=== PATIENT | male | born 1965 | race Caucasian/White ===

== ENCOUNTER 2016-10-26 14:46 | Inpatient (IN) | payer MEDICARE, OTHER ==
[2016-10-26] MEDS ORDERED: ACETAMINOPHEN IV (For NPO) 1,000 MG in EMPTY BAG 1 BAG IVPB STA (15:39)
[2016-10-26] MEDS ORDERED: IBUPROFEN IV 600 MG in SODIUM CHLORIDE 0.9% 250 ML IV STA (15:39)
[2016-10-26] MEDS ORDERED: ONDANSETRON 4 MG/2 ML VIAL IVP STA (15:40)
--- NOTE | 2016-10-26 15:43 | ED ---
General Adult HPI - General Chief complaint: Fever Stated complaint: SOB Time Seen by Provider: 10/26/16 15:00 Source: patient, RN notes reviewed Mode of arrival: wheelchair Limitations: no limitations - History of Present Illness Initial comments: This is a 51-year-old male who presents emergency department stating he has past medical history significant for leukemia. Patient comes in today because he been short of breath and coughing for the last 3 days. Patient states today' s got much worse. Patient thinks he has a fever as well. Patient states he has been coughing up sputum but as of today he's been unable to cough up anything more. Patient denies any chest pain or palpitations. Patient denies headache patient denies numbness weakness. Patient denies lightheadedness dizziness or near syncopal episode. Patient denies abdominal pain patient denies nausea vomiting or diarrhea. Patient states he cannot get the flu shot per his oncologist. - Related Data Home Medications Medication Instructions Recorded Confirmed ALPRAZolam [Xanax] 1 mg PO Q6H PRN 12/16/14 10/26/16 Ondansetron [Zofran ODT] 8 mg PO DIRECTED PRN 12/16/14 10/26/16 fentaNYL 25MCG/HR PATCH [Duragesic 1 applic TOPICAL Q72H 12/16/14 10/26/16 25MCG/HR] oxyCODONE-APAP 10-325MG [Percocet 1 tab PO Q3-4H PRN 12/18/14 10/26/16 10-325 mg] D-Methorphan/Acetamin/Doxylamn 30 ml PO Q6H PRN 10/26/16 10/26/16 [Vicks Nyquil Cold & Flu Liquid] amLODIPine [Norvasc] 10 mg PO DAILY 10/26/16 10/26/16 Allergies Allergy/AdvReac Type Severity Reaction Status Date / Time metoclopramide HCl Allergy Unknown Verified 10/26/16 16:34 [From Reglan] meperidine HCl [From Demerol] AdvReac Unknown Verified 10/26/16 16:34 Review of Systems ROS Statement: Those systems with pertinent positive or pertinent negative responses have been documented in the HPI. ROS Other: All systems not noted in ROS Statement are negative. Past Medical History Past Medical History: Cancer Additional Past Medical History / Comment(s): LEUKEMIA, HIATAL HERNIA, PT STATES CURRENTLY OFF CHEMO MEDS UNTIL AFTER THIS SURGERY History of Any Multi-Drug Resistant Organisms: None Reported Past Surgical History: Appendectomy, Bowel Resection, Hernia Repair Additional Past Surgical History / Comment(s): STATES MULTIPLE STOMACH SX, MULT ADHESIONS, HAS SURGICAL STEEL MESH IN INCISIONAL HERNIA Additional Past Anesthesia/Blood Transfusion Reaction / Comment(s): STATES OCCASIONALLY WAKES UP VIOLENT, AND NEEDS TO HAVE "WRISTS CUFFED" Past Psychological History: Depression Smoking Status: Current every day smoker Past Alcohol Use History: None Reported Past Drug Use History: None Reported General Exam - General Exam Comments Initial Comments: GENERAL: Patient is well-developed and well-nourished. Patient is nontoxic and well- hydrated and is in moderate distress. ENT: Neck is soft and supple. No significant lymphadenopathy is noted. Oropharynx is clear. Moist mucous membranes. Neck has full range of motion without eliciting any pain. EYES: The sclera were anicteric and conjunctiva were pink and moist. Extraocular movements were intact and pupils were equal round and reactive to light. Eyelids were unremarkable. PULMONARY: Unlabored respirations. Good breath sounds bilaterally. No audible rales rhonchi or wheezing was noted. CARDIOVASCULAR: There is a regular rate and rhythm without any murmurs gallops or rubs. ABDOMEN: Soft and nontender with normal bowel sounds. SKIN: Skin is clear with no lesions or rashes and otherwise unremarkable. NEUROLOGIC: Patient is alert and oriented x3. Cranial nerves II through XII are grossly intact. Motor and sensory are also intact. Normal speech, volume and content. Symmetrical smile. MUSCULOSKELETAL: Normal extremities with adequate strength and full range of motion. LYMPHATICS: No significant lymphadenopathy is noted PSYCHIATRIC: Normal psychiatric evaluation. Limitations: no limitations Course Vital Signs 10/26/16 10/26/16 10/26/16 15:00 16:56 17:10 Temperature 103.4 F H 103.3 F H 102.3 F H Pulse Rate 124 H 129 H 122 H Respiratory 20 24 20 Rate Blood Pressure 134/84 136/70 135/70 O2 Sat by Pulse 93 L 93 L 92 L Oximetry Medical Decision Making - Medical Decision Making EKG showed sinus tachycardia at 128 bpm UT interval is 142 QRS is 96 QT interval is 294 QTC is 429. Patient's EKG shows no ST segment elevation or depression or T-wave abnormalities are noted Chest x-ray shows no acute abdomen. Patient has influenza positive. Spoke with Dr. Rod he said the patient been discharged from his practice. Dr. Rod did not think the 85,000 white count was alarming and was no reason to keep him in the hospital but if the patient looked enough distress he was fine with keeping the patient hospital but he did not want to consult. - Lab Data Result diagrams: 10/26/16 15:51 10/26/16 15:51 Lab Results 10/26/16 10/26/16 10/26/16 Range/Units 15:51 15:51 15:51 WBC 85.4 H* (3.8-10.6) k/uL RBC 4.34 (4.30-5.90) m/uL Hgb 13.5 (13.0-17.5) gm/dL Hct 40.3 (39.0-53.0) % MCV 92.8 (80.0-100.0) fL MCH 31.0 (25.0-35.0) pg MCHC 33.4 (31.0-37.0) g/dL RDW 15.7 H (11.5-15.5) % Plt Count 276 (150-450) k/uL Neutrophils % (Manual) 65.0 % Band Neutrophils % 8.0 % Lymphocytes % (Manual) 4.0 % Monocytes % (Manual) 5.0 % Eosinophils % (Manual) 1.5 % Basophils % (Manual) 5.0 % Metamyelocytes % 6.5 % Myelocytes % 5.0 % Neutrophils # (Manual) 62.3 H (1.3-7.7) k/uL Lymphocytes # (Manual) 3.4 (1.0-4.8) k/uL Monocytes # (Manual) 4.3 H (0-1.0) k/uL Eosinophils # (Manual) 1.3 H (0-0.7) k/uL Basophils # (Manual) 4.3 H (0-0.2) k/uL Nucleated RBCs 0 (0-0) /100 WBC Manual Slide Review Performed Large Platelets Present PT (9.0-12.0) sec INR (<1.1) APTT (22.0-30.0) sec Sodium 140 (137-145) mmol/L Potassium 4.3 (3.5-5.1) mmol/L Chloride 99 (98-107) mmol/L Carbon Dioxide 26 (22-30) mmol/L Anion Gap 15 mmol/L BUN 10 (9-20) mg/dL Creatinine 1.00 (0.66-1.25) mg/dL Est GFR (MDRD) Af Amer >60 (>60 ml/min/1.73 sqM) Est GFR (MDRD) Non-Af >60 (>60 ml/min/1.73 sqM) Glucose 139 H (74-99) mg/dL Plasma Lactic Acid Patrice (0.7-2.0) mmol/L Calcium 9.2 (8.4-10.2) mg/dL Total Bilirubin 0.6 (0.2-1.3) mg/dL AST 38 (17-59) U/L ALT 43 (21-72) U/L Alkaline Phosphatase 87 (38-126) U/L Total Creatine Kinase 240 H (55-170) U/L CK-MB (CK-2) 0.7 (0.0-2.4) ng/mL CK-MB (CK-2) Rel Index 0.3 Troponin I <0.012 (0.000-0.034) ng/mL Total Protein 8.9 H (6.3-8.2) g/dL Albumin 4.6 (3.5-5.0) g/dL Cortisol 23 ug/dL Influenza Type A RNA (Not Detectd) Influenza Type B (PCR) (Not Detectd) 10/26/16 10/26/16 10/26/16 Range/Units 15:51 15:51 16:10 WBC (3.8-10.6) k/uL RBC (4.30-5.90) m/uL Hgb (13.0-17.5) gm/dL Hct (39.0-53.0) % MCV (80.0-100.0) fL MCH (25.0-35.0) pg MCHC (31.0-37.0) g/dL RDW (11.5-15.5) % Plt Count (150-450) k/uL Neutrophils % (Manual) % Band Neutrophils % % Lymphocytes % (Manual) % Monocytes % (Manual) % Eosinophils % (Manual) % Basophils % (Manual) % Metamyelocytes % % Myelocytes % % Neutrophils # (Manual) (1.3-7.7) k/uL Lymphocytes # (Manual) (1.0-4.8) k/uL Monocytes # (Manual) (0-1.0) k/uL Eosinophils # (Manual) (0-0.7) k/uL Basophils # (Manual) (0-0.2) k/uL Nucleated RBCs (0-0) /100 WBC Manual Slide Review Large Platelets PT 11.4 (9.0-12.0) sec INR 1.1 (<1.1) APTT 31.0 H (22.0-30.0) sec Sodium (137-145) mmol/L Potassium (3.5-5.1) mmol/L Chloride (98-107) mmol/L Carbon Dioxide (22-30) mmol/L Anion Gap mmol/L BUN (9-20) mg/dL Creatinine (0.66-1.25) mg/dL Est GFR (MDRD) Af Amer (>60 ml/min/1.73 sqM) Est GFR (MDRD) Non-Af (>60 ml/min/1.73 sqM) Glucose (74-99) mg/dL Plasma Lactic Acid Patrice 1.5 (0.7-2.0) mmol/L Calcium (8.4-10.2) mg/dL Total Bilirubin (0.2-1.3) mg/dL AST (17-59) U/L ALT (21-72) U/L Alkaline Phosphatase (38-126) U/L Total Creatine Kinase (55-170) U/L CK-MB (CK-2) (0.0-2.4) ng/mL CK-MB (CK-2) Rel Index Troponin I (0.000-0.034) ng/mL Total Protein (6.3-8.2) g/dL Albumin (3.5-5.0) g/dL Cortisol ug/dL Influenza Type A RNA Detected A (Not Detectd) Influenza Type B (PCR) Not Detected (Not Detectd) Disposition Clinical Impression: Influenza, Dyspnea, Leukocytosis, History of chronic myeloid leukemia Disposition: [facility] Referrals: Diego Mao MD [Primary Care Provider] - 1-2 days Time of Disposition: 17:10
[2016-10-26] MEDS: SODIUM CHLORIDE 0.9% 500 ML IV SCH ×2 (15:55→16:03)
[2016-10-26 16:07] LABS: CH 30.6; CHCM 33.3; HCT 40.3 % (39.0-53.0); HGB 13.5 gm/dL (13.0-17.5); Immature Gran Flag Marked; MCHC 33.4 g/dL (31.0-37.0); MCV 92.8 fL (80.0-100.0); Mean Platelet Volume 8.2; RBC 4.34 m/uL (4.30-5.90); RDW 15.7 % (11.5-15.5); WBC (Perox) 58.94
[2016-10-26 16:16] LABS: ALT 43 U/L (21-72); AST 38 U/L (17-59); Alkaline Phosphatase 87 U/L (38-126); Anion Gap 15 mmol/L; Blood Urea Nitrogen 10 mg/dL (9-20); Calcium 9.2 mg/dL (8.4-10.2); Carbon Dioxide 26 mmol/L (22-30); Chloride 99 mmol/L (98-107); Glucose 139 mg/dL (74-99); INR 1.1 (<1.1); Non-African American GFR(MDRD) >60 (>60 ml/min/1.73 sqM); Potassium 4.3 mmol/L (3.5-5.1); Prothrombin Time 11.4 sec (9.0-12.0); Sodium 140 mmol/L (137-145); Total Bilirubin 0.6 mg/dL (0.2-1.3); Total Protein 8.9 g/dL (6.3-8.2)
[2016-10-26 16:21] LABS: Creatine Kinase 240 U/L (55-170)
[2016-10-26 16:26] LABS: WBC 85.4 k/uL (3.8-10.6)
--- NOTE | 2016-10-26 16:31 | XR ---
EXAMINATION TYPE: XR chest 2V DATE OF EXAM: 10/26/2016 4:27 PM COMPARISON: 12/19/2014 INDICATION: Fever TECHNIQUE: Single frontal view of the chest is obtained. FINDINGS: The heart size is normal. The pulmonary vasculature is normal. The lungs are clear. IMPRESSION: 1. No acute pulmonary process.
[2016-10-26 16:33] LABS: Creatine Kinase MB 0.7 ng/mL (0.0-2.4); Troponin I <0.012 ng/mL (0.000-0.034)
[2016-10-26 16:53] LABS: Add Differential Manual Differential
[2016-10-26 16:58] LABS: Metamyelocytes % 6.5 %; Nucleated Red Blood Cells 0 /100 WBC (0-0); Total Cells Counted 200
[2016-10-26 16:59] LABS: Large Platelets Present; Manual Review Performed
[2016-10-26] MEDS ORDERED: SODIUM CHLORIDE 0.9% 1,000 ML IV ONE ×2 (17:10→17:11)
[2016-10-26] MEDS ORDERED: OSELTAMIVIR 75 MG CAP PO STA (17:11)
[2016-10-26] MEDS ORDERED: ACETAMINOPHEN TAB 325 MG TAB PO PRN (17:13)
[2016-10-26] MEDS ORDERED: IBUPROFEN 600 MG TAB PO PRN (17:14)
[2016-10-26] MEDS: MAG HYDROX/AL HYDROX/SIMETH 30 ML CUP PO PRN (20:40)
[2016-10-26] MEDS: oxyCODONE-APAP 10-325MG 1 EACH TAB PO PRN ×2 (20:41→23:07)
[2016-10-26] MEDS ORDERED: SODIUM CHLORIDE 0.9% 500 ML IV ONE (20:45)
[2016-10-26] MEDS ORDERED: METOPROLOL TARTRATE 50 MG TAB PO STA (20:46)
[2016-10-26] MEDS ORDERED: hydrALAZINE HCL 20 MG/ML 1 ML VIAL IVP PRN (20:47)
[2016-10-26] MEDS: SODIUM CHLORIDE 0.9% 1,000 ML IV SCH (21:06)
[2016-10-26 21:20] LABS: Creatine Kinase 339 U/L (55-170)
[2016-10-26 21:32] LABS: Creatine Kinase MB 0.9 ng/mL (0.0-2.4); Troponin I <0.012 ng/mL (0.000-0.034)
[2016-10-26] MEDS: OSELTAMIVIR 75 MG CAP PO SCH (22:36)
[2016-10-27 02:12] LABS: Appearance,Urine Clear (Clear); Bilirubin,Urine Negative (Negative); Glucose,Urine (UA) Negative (Negative); Ketones,Urine Negative (Negative); Leukocyte Esterase,Urine Negative (Negative); Nitrite,Urine Negative (Negative); PH, Urine 5.5 (5.0-8.0); Protein,Urine Trace (Negative); Specific Gravity,Urine 1.027 (1.001-1.035); UA Billing (MACRO vs. MICRO) CHEM
[2016-10-27] MEDS: oxyCODONE-APAP 10-325MG 1 EACH TAB PO PRN ×6 (02:29→20:37)
[2016-10-27 03:58] LABS: Creatine Kinase 481 U/L (55-170)
[2016-10-27 04:11] LABS: Creatine Kinase MB 1.9 ng/mL (0.0-2.4); Troponin I <0.012 ng/mL (0.000-0.034)
[2016-10-27] MEDS: ALPRAZolam 0.5 MG TAB PO PRN ×2 (04:58→23:26)
[2016-10-27] MEDS: ONDANSETRON 4 MG/2 ML VIAL IVP PRN (08:17)
[2016-10-27] MEDS ORDERED: ACETAMINOPHEN PO PRN (10:43)
[2016-10-27] MEDS ORDERED: [UNRECOGNIZED DRUG - OTHER] PO PRN (10:43)
[2016-10-27] MEDS ORDERED: DOXYLAMINE PO PRN (10:43)
[2016-10-27] MEDS ORDERED: DEXTROMETHORPHAN PO PRN (10:43)
[2016-10-27] MEDS ORDERED: TEMAZEPAM 15 MG CAP PO PRN (10:45)
[2016-10-27] MEDS: OSELTAMIVIR 75 MG CAP PO SCH ×2 (11:52→20:53)
[2016-10-27] MEDS: METOPROLOL TARTRATE 50 MG TAB PO SCH ×2 (11:52→20:53)
[2016-10-27] MEDS: SODIUM CHLORIDE 0.9% 1,000 ML IV SCH ×4 (11:54→20:01)
[2016-10-27] MEDS: LEVOFLOXACIN 500MG-D5W PMX 500 MG in DEXTROSE/WATER 1 100ML.BAG IVPB SCH (11:59)
[2016-10-27 14:17] VITALS: BMI 33.6
--- NOTE | 2016-10-27 14:43 | P.CNPUL ---
History of Present Illness Consult date: 10/27/16 Reason for consult: dyspnea, cough, COPD, other Chief complaint: Fever or shortness of breath influenza History of present illness: This is a 51-year-old gentleman who apparently sees Dr. Diego Mao up in [place]. The patient apparently was sent to the emergency room here because of fever and shortness of breath the patient is feeling a bit better today. He does have a history of leukemia. His oncologist is Dr. Luna. The patient states that there for last couple of days or so he's been coughing. Has had fever. Shortness of breath. Not able to cough up much or any phlegm. No chest pain or palpitations. No headache. No nausea vomiting or diarrhea. Review of Systems A 12 point review of system is positive for fever as well as cough and some shortness of breath. The rest of the 12 point review of system is unremarkable. He apparently was admitted for influenza. His chest x-ray though is normal. 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") HIATAL HERNIA(has sx), chronic pain syndrome, History of Any Multi-Drug Resistant Organisms: None Reported Past Surgical History: Adenoidectomy, Appendectomy, Bowel Resection, Hernia Repair, Tonsillectomy Additional Past Surgical History / Comment(s): STATES MULTIPLE STOMACH SX, MULT ADHESIONS, HAS SURGICAL STEEL MESH IN INCISIONAL HERNIA, HIATAL HERNIA SX AND LYSIS OF ADHESIONS Additional Past Anesthesia/Blood Transfusion Reaction / Comment(s): STATES OCCASIONALLY WAKES UP VIOLENT, AND NEEDS TO HAVE "WRISTS CUFFED" Past Psychological History: Depression Additional Psychological History / Comment(s): PT STATED HAS DEPRESSION BUT NO THOUGHT OF HARMING SELF. Smoking Status: Former smoker Past Alcohol Use History: None Reported Additional Past Alcohol Use History / Comment(s): STARTED SMOKING AT AGE 19 JUST STOPPED SMOKING FEW DAYS BEFORE THIS ADMIT. WAS SMOKING 1-1.5 PPD. Past Drug Use History: None Reported - Past Family History Father Additional Family Medical History / Comment(s): HEART PROBLEMS Mother Family Medical History: No Reported History Additional Family Medical History / Comment(s): "HEALTHY". ' Medications and Allergies Home Medications Medication Instructions Recorded Confirmed Type ALPRAZolam [Xanax] 1 mg PO Q6H PRN 12/16/14 10/26/16 History Ondansetron [Zofran ODT] 8 mg PO DIRECTED PRN 12/16/14 10/26/16 History fentaNYL 25MCG/HR PATCH [Duragesic 1 applic TOPICAL Q72H 12/16/14 10/26/16 History 25MCG/HR] oxyCODONE-APAP 10-325MG [Percocet 1 tab PO Q3-4H PRN 12/18/14 10/26/16 History 10-325 mg] D-Methorphan/Acetamin/Doxylamn 30 ml PO Q6H PRN 10/26/16 10/26/16 History [Vicks Nyquil Cold & Flu Liquid] amLODIPine [Norvasc] 10 mg PO DAILY 10/26/16 10/26/16 History Allergies Allergy/AdvReac Type Severity Reaction Status Date / Time metoclopramide HCl Allergy Unknown Verified 10/26/16 16:34 [From Reglan] meperidine HCl [From Demerol] AdvReac Unknown Verified 10/26/16 16:34 Physical Exam Osteopathic Statement: *. No significant issues noted on an osteopathic structural exam other than those noted in the History and Physical/Consult. Vitals: Vital Signs Temp Pulse Pulse Pulse Resp BP BP 10/27/16 07:00 97.9 F 101 H 20 133/78 10/27/16 00:44 97.8 F 10/26/16 22:40 99.3 F 10/26/16 21:54 100 F H 114 H 18 135/77 10/26/16 20:24 99.3 F 125 H 185/99 10/26/16 19:16 30 H 10/26/16 19:10 98.4 F 113 H 34 H 137/74 10/26/16 17:42 113 H 10/26/16 17:31 102.3 F H 120 H 20 136/70 Pulse Ox 10/27/16 07:00 93 L 10/27/16 00:44 10/26/16 22:40 10/26/16 21:54 10/26/16 20:24 10/26/16 19:16 10/26/16 19:10 95 10/26/16 17:42 93 L 10/26/16 17:31 93 L Intake and Output 10/26/16 10/27/16 10/27/16 22:59 06:59 14:59 Intake Total 590 1790 Balance 590 1790 Intake: IV 1200 Sodium Chloride 0.9% 1, 1200 000 ml @ 150 mls/hr IV . Q6H40M [facility] Rx#:[id number] Oral 590 590 Other: Voiding Method Toilet Urinal # Voids 2 2 Weight 115.666 kg 115.666 kg Patient Weight 10/28/16 06:59 Weight 115.666 kg No acute distress, oriented 3. Sitting up at the bedside. Flat affect. No respiratory distress. HEENT examination is grossly unremarkable. Supple. Full range of motion. Cardiovascular examination reveals regular rhythm rate. No murmur. Lungs reveal a few scattered rhonchi. Some mild crackles noted. No wheezes. Breath sounds are equal bilaterally. Abdomen soft bowel sounds are heard. He does have some well-healed scars from recent laparoscopic Myke fundoplication. Extremities are intact. Results - Laboratory Findings CBC and BMP: 10/26/16 15:51 10/26/16 15:51 PT/INR, D-dimer PT 11.4 sec (9.0-12.0) 10/26/16 15:51 INR 1.1 (<1.1) 10/26/16 15:51 Abnormal lab findings: Abnormal Labs 10/26/16 10/27/16 10/27/16 20:51 02:00 03:22 Total Creatine Kinase 339 H 481 H Urine Protein Trace H - Diagnostic Findings Chest x-ray: image reviewed (Chest x-ray labs and medications are reviewed.) Assessment and Plan (1) Dyspnea Status: Acute (2) History of chronic myeloid leukemia Status: Acute (3) Influenza Status: Acute (4) Leukocytosis Status: Acute Plan: Plan The patient's medications labs x-rays are reviewed. The chest x-ray is normal. Could get by with just an oral antibiotic. She also be on Tamiflu 75 twice a day for 5 days of influenza nasal swabs are positive. No additional recommendations are made. Prognosis is guarded given his leukemia. Time with Patient: Greater than 30
[2016-10-27] MEDS: IPRATROPIUM 0.5 MG/2.5 ML NEBU INHALATION SCH ×3 (15:14→19:40)
[2016-10-27] MEDS: LEVALBUTEROL NEB (CONC) 1.25 MG/0.5 ML AMP INHALATION SCH ×3 (15:14→19:40)
--- NOTE | 2016-10-27 16:09 | HP ---
DATE OF ADMISSION: 10/26/2016 CHIEF COMPLAINT: Shortness of breath and fever. HISTORY OF PRESENT ILLNESS: 51-year-old gentleman with a past history of gastroesophageal reflux disease, history of adenoidectomy, appendectomy, history of bowel resection, history of depression, history of chronic myeloleukemia with [id number], being followed by Dr. Mao in the outpatient setting, not by any oncologist currently complaining of shortness of breath for the last 2 days. The patient also has a fever. Because of increasing difficulty, the patient came to [facility] and admitted to the hospital for further evaluation and treatment. The white count is elevated to 85.4, possible indicating chronic myeloid leukemia. Otherwise influenza was positive. The patient admitted to the hospital for further evaluation and treatment. Creatinine kinase is also elevated. Troponins are negative. There is no history of any chest pain. No history of headache, loss of consciousness or seizures. No history of diarrhea, fever, rigors or chills. Past medical history: History of CML, , history of GERD, hypertension, history of leukemia, history of bowel resection, history of depression. Medications prior to admission: 1. Oxycodone 10 mg q.4 p.r.n. 2. Fentanyl 25 mcg q72 hours. 3. Norvasc 10 mg daily. 4. Zofran 8 mg p.r.n. 6. Xanax 1 mg q.6h p.r.n. ALLERGIES: REGLAN AND DEMEROL. FAMILY HISTORY: Heart problems in the family. SOCIAL HISTORY: Previous history of smoking. No history of smoking or alcohol intake. REVIEW OF SYSTEMS: ENT: No diminished hearing or diminished vision. CARDIOVASCULAR: No angina or palpitations. RESPIRATORY: As mentioned earlier. GI: No nausea or vomiting. : No dysuria. CENTRAL NERVOUS SYSTEM: No numbness or weakness. ALLERGY/IMMUNOLOGY: No asthma or hayfever. MUSCULOSKELETAL: As mentioned earlier. HEMATOLOGY/ONCOLOGY: No history of anemia. ENDOCRINE: No history of diabetes, hypothyroidism. CONSTITUTIONAL: As mentioned earlier DERMATOLOGY: Negative. RHEUMATOLOGY: Negative. PSYCHIATRY: As mentioned earlier. PHYSICAL EXAMINATION: The patient is alert and oriented times three. Pulse 101, blood pressure 133/78, respirations 20, temperature 97.9, pulse ox 93% on 4 liters. HEENT: Conjunctivae normal. Oral mucosa moist. NECK: No JVD. No carotid bruit. No lymph node enlargement. CARDIOVASCULAR: S1, S2, muffled. No S3, no S4. RESPIRATORY: Breath sounds diminished at the bases. Breathing efforts are markedly increased. Bilateral scattered rhonchi and expiratory wheezing and crackles also heard. ABDOMEN: Soft, obese, nontender. No mass palpable. Legs: No edema, no swelling. Nervous system: Higher function as mentioned earlier. Moves all 4 limbs. No focal motor or sensory deficits. LYMPHATICS: No lymph nodes palpable in the neck, axillae or groin. SKIN: No ulcer, rash bleeding. LABS: WBC 85.4, glucose 113, creatinine kinase 339 and 481. ASSESSMENT: 1. Chronic obstructive pulmonary disease, acute exacerbation, with acute purulent tracheobronchitis. 2. Acute influenza type A. 3. Mild rhabdomyolysis possible acute influenza. 4. Increased random blood sugar. 5. Chronic myeloid leukemia. 6. History of noncompliance with chronic myeloid leukemia treatment. 7. History of gastroesophageal reflux disease. 8. Hypertension. 9. History of hiatal hernia. 10. History of appendectomy. 11. History of bowel resection. 12. History of multiple stomach surgeries and incisional hernia. 13. History of depression. 14. Remote history nicotine dependence. 15. Obesity, body mass index of 33.6. 16. FULL CODE. RECOMMENDATIONS AND DISCUSSION: In this 51-year-old gentleman who presented with multiple complex medical issues, we will monitor the patient closely. Continue the current medications. Continue symptomatic treatment. I would recommend continue with bronchodilators. Continue with empiric antibiotics and Tamiflu. Otherwise Dr. Cedillo has been consulted. Repeat labs will be ordered. I would also recommend the patient to follow up with hematology/oncology in [place] which is probably closer to his home or other tertiary care facility and apparently the local. Hematology/oncology team has discharged him from the practice. Otherwise, medications . Prognosis guarded. See orders for details. Further recommendations to follow. MTDD
[2016-10-27] MEDS: HYDROmorphone 1 MG/ML 1 ML SYRINGE IVP PRN ×2 (17:00→23:26)
[2016-10-27] MEDS: PANTOPRAZOLE 40 MG TABLET PO SCH (17:08)
[2016-10-27] MEDS: MAG HYDROX/AL HYDROX/SIMETH 30 ML CUP PO PRN ×2 (17:41→21:07)
[2016-10-27] MEDS: SYMBICORT 160-4.5 MCG INHALER INHALATION SCH (20:08)
[2016-10-27] MEDS: HEPARIN SODIUM,PORCINE 5,000 UNIT/ML 1 ML VIAL SQ SCH (20:50)
[2016-10-28] MEDS: ONDANSETRON 4 MG/2 ML VIAL IVP PRN ×2 (02:15→08:27)
[2016-10-28] MEDS: oxyCODONE-APAP 10-325MG 1 EACH TAB PO PRN ×4 (02:15→13:56)
[2016-10-28] MEDS: SODIUM CHLORIDE 0.9% 1,000 ML IV SCH ×2 (02:27→13:56)
[2016-10-28 04:16] VITALS: RESP 18
[2016-10-28] MEDS: HYDROmorphone 1 MG/ML 1 ML SYRINGE IVP PRN (06:17)
[2016-10-28 07:46] VITALS: BP 131/71; TEMP 98.1
[2016-10-28] MEDS: PANTOPRAZOLE 40 MG TABLET PO SCH (08:14)
[2016-10-28] MEDS: METOPROLOL TARTRATE 50 MG TAB PO SCH (08:14)
[2016-10-28] MEDS: OSELTAMIVIR 75 MG CAP PO SCH ×2 (08:14→08:37)
[2016-10-28] MEDS: HEPARIN SODIUM,PORCINE 5,000 UNIT/ML 1 ML VIAL SQ SCH (08:15)
[2016-10-28 08:42] LABS: Anion Gap 10 mmol/L; Blood Urea Nitrogen 16 mg/dL (9-20); Calcium 8.3 mg/dL (8.4-10.2); Carbon Dioxide 27 mmol/L (22-30); Chloride 104 mmol/L (98-107); Creatine Kinase 301 U/L (55-170); Glucose 131 mg/dL (74-99); Non-African American GFR(MDRD) >60 (>60 ml/min/1.73 sqM); Potassium 3.9 mmol/L (3.5-5.1); Sodium 141 mmol/L (137-145)
[2016-10-28 08:56] LABS: CH 30.6; Hypochromasia Slight; Immature Gran Flag Marked; MCH 30.9 pg (25.0-35.0); MCV 96.8 fL (80.0-100.0); Mean Platelet Volume 8.6; RDW 15.9 % (11.5-15.5)
[2016-10-28 08:58] LABS: WBC 65.6 k/uL (3.8-10.6)
[2016-10-28 08:59] LABS: HGB 9.9 gm/dL (13.0-17.5)
[2016-10-28] MEDS ORDERED: amLODIPine 10 MG TAB PO SCH (09:00)
[2016-10-28] MEDS: IPRATROPIUM 0.5 MG/2.5 ML NEBU INHALATION SCH ×2 (09:18→13:32)
[2016-10-28] MEDS: LEVALBUTEROL NEB (CONC) 1.25 MG/0.5 ML AMP INHALATION SCH ×2 (09:18→13:32)
[2016-10-28] MEDS: SYMBICORT 160-4.5 MCG INHALER INHALATION SCH (09:19)
[2016-10-28 09:33] VITALS: PULSE 100
[2016-10-28 11:04] LABS: Add Differential Manual Differential
[2016-10-28 11:08] LABS: Band Neutrophils % 8.5 %; Manual Review Performed; Nucleated Red Blood Cells 0 /100 WBC (0-0); Total Cells Counted 200; Toxic Granulation Present
[2016-10-28] MEDS: LEVOFLOXACIN 500MG-D5W PMX 500 MG in DEXTROSE/WATER 1 100ML.BAG IVPB SCH (13:56)
--- NOTE | 2016-10-28 14:12 | P.PN ---
Subjective Progress note dated 10/28/2016 next This is a 51-year-old male who sees Dr. Mao up in [place]. The patient came into the emergency room because of fever and shortness of breath. He apparently was diagnosed as having influenza. He apparently has a rare form of leukemia and sees Dr. Luna for that. The patient states he is being discharged home today. Feeling much better. Objective - Vital Signs Vital signs: Vital Signs Temp 98.1 F 10/28/16 07:00 Pulse 100 10/28/16 09:29 Resp 18 10/28/16 07:00 BP 131/71 10/28/16 07:00 Pulse Ox 93 L 10/28/16 07:00 Intake & Output 10/27/16 10/28/16 10/28/16 18:59 06:59 18:59 Intake Total 950 Balance 950 Weight 115.666 kg Intake: IV 750 Sodium Chloride 0.9% 1, 750 000 ml @ 150 mls/hr IV . Q6H40M [facility] Rx#:[id number] Oral 200 Other: Voiding Method Toilet Toilet Toilet Urinal Urinal Urinal # Voids 2 1 2 # Bowel Movements 1 - Exam No acute distress, oriented 3. Sitting at the edge of the bed. No respiratory distress. No audible wheezing. HEENT examination is grossly unremarkable. Mucous membranes are moist. No oral lesions TMs and EACs are normal. Supple. Full range of motion. No adenopathy. No thyromegaly. Neck veins are flat. Cardiovascular examination reveals regular rhythm rate. S1-S2 normal. No S3- S4 murmur. Lungs reveal few scattered expiratory wheezes. No rhonchi. Breath sounds are equal. No prolongation. Abdomen soft. A few scars are noted. Extremities are intact. - Labs CBC & Chem 7: 10/28/16 07:58 10/28/16 07:58 Labs: Abnormal Lab Results - Last 24 Hours (Table) 10/28/16 10/28/16 Range/Units 07:58 07:58 WBC 65.6 H* (3.8-10.6) k/uL RBC 3.20 L (4.30-5.90) m/uL Hgb 9.9 L D (13.0-17.5) gm/dL Hct 31.0 L (39.0-53.0) % RDW 15.9 H (11.5-15.5) % Neutrophils # (Manual) 45.6 H (1.3-7.7) k/uL Monocytes # (Manual) 3.3 H (0-1.0) k/uL Eosinophils # (Manual) 1.3 H (0-0.7) k/uL Glucose 131 H (74-99) mg/dL Calcium 8.3 L (8.4-10.2) mg/dL Creatine Kinase 301 H (55-170) U/L Assessment and Plan (1) Dyspnea Status: Acute (2) History of chronic myeloid leukemia Status: Acute (3) Influenza Status: Acute (4) Leukocytosis Status: Acute Plan: Plan The patient's medications labs x-rays are reviewed. The chest x-ray is normal. Could get by with just an oral antibiotic. She also be on Tamiflu 75 twice a day for 5 days of influenza nasal swabs are positive. No additional recommendations are made. Prognosis is guarded given his leukemia. Plan dated 10/28/2016 The patient may be discharged home today. He started Tamiflu and should continue it for 5 days at 75 mg twice a day. He can also be discharged home on an oral antibiotic. He should follow-up with his primary doctor and his oncologist Dr. Walters. He is free to come to see us in the office if he feels like he needs to. Time with Patient: Less than 30
--- NOTE | 2016-10-29 09:09 | DS ---
DATE OF ADMISSION: 10/26/2016 DATE OF DISCHARGE: 10/28/2016 FINAL DIAGNOSES: 1. Chronic obstructive pulmonary disease acute exacerbation with acute purulent tracheobronchitis. 2. Acute influenza A. 3. Mild rhabdomyolysis possibly secondary to acute influenza. 4. Increased random blood sugar. 5. Chronic myeloid leukemia. 6. History of noncompliance with Chronic myeloid leukemia treatment. 7. Gastroesophageal reflux disease. 8. Hypertension. 9. History of hiatal hernia. 10. History of appendectomy. 11. History of two bowel resections. 12. History of multiple stomach surgeries, incisional hernia. 13. History of depression. 14. Remote of history of nicotine dependence. 15. Obesity with body mass index of 33.6. 16. FULL CODE. DISCHARGE DISPOSITION: The patient will be discharged in stable condition with guarded prognosis. The patient is extremely keen on going home. HISTORY OF PRESENT ILLNESS: This 51-year-old gentleman with a past medical history of multiple medical problems being followed by Dr. Mao in the outpatient setting was admitted with shortness of breath, fever and significant influenza A and as well as COPD which was treated symptomatically. Dr. Cedillo saw the patient. Patient was On exam, vitals are stable. CARDIOVASCULAR SYSTEM: S1, S2 muffled. RESPIRATORY: A few scattered rhonchi and crackles. ABDOMEN: Soft. NERVOUS SYSTEM: No focal deficits. DISCHARGE ADVICE: 1. Diet is cardiac. 2. Activity limited until followup. 3. Follow up with Dr. Mao in 2 to 3 days. 4. Follow up with Dr. Cedillo as advised. Medications are: 1. Xanax 1 mg q.6 p.r.n. 2. Tylenol 650 q.4 p.r.n. 3. Symbicort 160/4.5 two puffs b.i.d. 4. Cipro 500 mg p.o. b.i.d. for 5 days. 5. Albuterol Atrovent updrafts q.i.d. and p.r.n. 6. Lopressor 50 mg p.o. b.i.d. 7. Zofran 8 mg p.o. q.6 p.r.n. 8. Tamiflu 75 mg p.o. b.i.d. for 3 more days. 9. Norvasc 10 mg p.o. daily. 10. Fentanyl patch 25 mcg q.72 hours. 11. Oxycodone 10 mg q. 3 to 4 p.r.n. Once again, the patient will be discharged in stable condition with guarded prognosis. Total time taken 35 minutes. MTDD
== END 2016-10-28 14:05 | disposition home or self-care (01) | DRG 153 ==
LOC: EC 14:46 → 5MS5E 17:11
PROVIDERS: ADMIT Hospitalist; ATTEND Hospitalist
DX: J11.1 Influenza due to unidentified influenza virus with other respiratory manifestations (principal); M62.82 Rhabdomyolysis; C92.10 Chronic myeloid leukemia, BCR/ABL-positive, not having achieved remission; J44.0 Chronic obstructive pulmonary disease with (acute) lower respiratory infection; J44.1 Chronic obstructive pulmonary disease with (acute) exacerbation; J20.9 Acute bronchitis, unspecified; K21.9 Gastro-esophageal reflux disease without esophagitis; I10 Essential (primary) hypertension; R73.09 Other abnormal glucose; F17.200 Nicotine dependence, unspecified, uncomplicated; G89.4 Chronic pain syndrome; R00.0 Tachycardia, unspecified; K44.9 Diaphragmatic hernia without obstruction or gangrene; F32.9 Major depressive disorder, single episode, unspecified; Z79.899 Other long term (current) drug therapy; Z88.5 Allergy status to narcotic agent; Z88.8 Allergy status to other drugs, medicaments and biological substances; Z87.19 Personal history of other diseases of the digestive system; Z79.891 Long term (current) use of opiate analgesic; Z90.49 Acquired absence of other specified parts of digestive tract; Z82.49 Family history of ischemic heart disease and other diseases of the circulatory system; Z91.19 Patient's noncompliance with other medical treatment and regimen; Z92.21 Personal history of antineoplastic chemotherapy
CPT/HCPCS: 36415; 71020; 80048; 80053; 81003; 82533; 82550; 82553; 83605; 84484; 85025; 85610; 85730; 87040; 87086; 87502; 93005; 94640; 96361; 96365; 96375; 99284

== ENCOUNTER 2017-11-03 10:18 | Inpatient (IN) | payer MEDICARE, OTHER ==
[2017-11-03] MEDS ORDERED: SODIUM CHLORIDE 0.9% 1,000 ML IV STA (11:22)
[2017-11-03] MEDS ORDERED: SODIUM CHLORIDE 0.9% 500 ML IV STA (11:22)
[2017-11-03] MEDS ORDERED: PANTOPRAZOLE 40 MG/10 ML VIAL IVP STA (11:22)
[2017-11-03] MEDS ORDERED: HYDROmorphone 0.5 MG/0.5 ML SYRINGE IVP STA (11:25)
--- NOTE | 2017-11-03 11:34 | ED ---
General Adult HPI - General Chief complaint: Abdominal Pain Stated complaint: abdominal bulge post op, visual disturbance, weigh Time Seen by Provider: 11/03/17 10:45 Source: patient, family, RN notes reviewed Mode of arrival: wheelchair Limitations: no limitations - History of Present Illness Initial comments: Chief complaint and history of present illness this is a 52-year-old male multiple complaints multiple medical problems. The patient reports over the past several months she's lost over 50 pounds. Past medical problems significant for CML which she's not being treated for her years. He only sees his family physician. Recently complained his family physician and he had significant changes in his visual acuity. He was referred to a local mobile pet groomer but when he found that a course 300 hours he walked out. Patient reports difficulty with vision includes central loss of vision better peripheral vision. Ongoing for 1 month. Patient also reports being treated for thrush which goes away in his mouth but not in the esophagus. The patient' s complaint today of abdominal pain. Decreased a poor appetite. Sleeps 90% of the day. - Related Data Home Medications Medication Instructions Recorded Confirmed Ondansetron [Zofran ODT] 8 mg PO Q12H PRN 12/16/14 11/03/17 fentaNYL 25MCG/HR PATCH [Duragesic 1 applic TOPICAL Q72H 12/16/14 11/03/17 25MCG/HR] ALPRAZolam [Xanax] 2 mg PO Q6H PRN 11/03/17 11/03/17 Ibuprofen [Motrin] 800 mg PO Q8H 11/03/17 11/03/17 Nystatin 100,000 Unit/ml Susp 2.5 ml PO QID 11/03/17 11/03/17 [Mycostatin Oral Susp] Zolpidem [Ambien] 10 mg PO HS PRN 11/03/17 11/03/17 oxyCODONE HCL 15 mg PO Q2H PRN 11/03/17 11/03/17 Allergies Allergy/AdvReac Type Severity Reaction Status Date / Time metoclopramide HCl Allergy Unknown Verified 11/03/17 10:57 [From Reglan] meperidine HCl [From Demerol] AdvReac Vein Verified 11/03/17 10:57 redness Review of Systems ROS Statement: Those systems with pertinent positive or pertinent negative responses have been documented in the HPI. Review of systems; patient denies headache as noted above he has had visual acuity changes. Complains discomfort with swallowing. He's been advised not to have any EGDs because of the thinness of his esophagus. Patient complains of nausea but no vomiting he's had a fundal plication. Patient has chronic abdominal pain. States is a bowel movement once every several days and has to strain to do it. He has been passing large amounts of gas this morning. Patient also reports she has a significantly enlarged painful spleen. He's had multiple surgeries for severe adhesions post-surgeries. The patient's for surgery was for an intestine that was within and resulting in a colostomy. Efforts to take to colostomy down for the results of worsening adhesions. The patient also reports being at [facility] for his surgeries. He states post-surgeries had episodes of severe hypoglycemia and for some reaction probably to anesthesia that could last hours. He states his family doctor does not want to undergo any surgeries as he may not survive them. Patient reports she is to be on Vicodin has been switched to OxyContin. He states it make him nauseated. Past medical problems include CML, untreated, GERD, hypertension,. The patient' s surgeries tonsils, adenoids, appendectomy and bowel resection resulting in colostomy which was taken down resulting in multiple adhesions and multiple ventral hernia repairs. With mesh placed. Family history noncontributory ALLERGIES to metoclopramide and Dilaudid. But he can take Dilaudid. Ex- smoker denies alcohol use. ROS Other: All systems not noted in ROS Statement are negative. 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") HIATAL HERNIA(has sx), chronic pain syndrome, History of Any Multi-Drug Resistant Organisms: None Reported Past Surgical History: Adenoidectomy, Appendectomy, Bowel Resection, Hernia Repair, Tonsillectomy Additional Past Surgical History / Comment(s): STATES MULTIPLE STOMACH SX, MULT ADHESIONS, HAS SURGICAL STEEL MESH IN INCISIONAL HERNIA, HIATAL HERNIA SX AND LYSIS OF ADHESIONS Additional Past Anesthesia/Blood Transfusion Reaction / Comment(s): STATES OCCASIONALLY WAKES UP VIOLENT, AND NEEDS TO HAVE "WRISTS CUFFED" Past Psychological History: Depression Smoking Status: Former smoker Past Alcohol Use History: None Reported Past Drug Use History: None Reported - Past Family History Father Additional Family Medical History / Comment(s): HEART PROBLEMS Mother Family Medical History: No Reported History Additional Family Medical History / Comment(s): "HEALTHY". ' General Exam - General Exam Comments Initial Comments: General: The patient is awake and alert, speaks with a muffled voice because of chronic irritation to his throat and thrush. Complains of abdominal pain. Passing gas this morning. Vital signs 99.1 pulse 109 respiratory rate 18 pulse ox 90% room air blood pressure 126/71. Eye: Pupils are equal, round and reactive to light, extra-ocular movements are intact ; patient reports for the past months she's had significant changes with his visual acuity he has black areas with his left eye peripheral vision appears to be good bilaterally per patient. He did not want to pay $300 to be seen by the mobile pet groomer and left the office. Ears, nose, mouth and throat: There are moist mucous membranes and no oral lesions. Mildly reddened pharynx. Neck: The neck is supple, mild anterior cervical lymphadenopathy. Thyroid not enlarged. Cardiovascular: Tachycardic heart rate 109.. No murmur, rub or gallop is appreciated. Respiratory: Lungs are clear to auscultation, respirations are non-labored, breath sounds are equal. No wheezes, stridor, rales, or rhonchi. Gastrointestinal: Multiple surgical scars on the abdomen. Palpable enlarged spleen. States he did pass gas this morning. Bowel movements every several days with straining. Decreased appetite, 50+ pounds weight loss over the past several months. Active bowel sounds. Voluntary guarding with palpation throughout the entire abdomen. Chronic abdominal pain Back: No complaint of back pain. Musculoskeletal: Significant peripheral edema from toes to knees ongoing for a very long period of time per patient. Neurological: No complaint of any focal or lateralizing findings. Skin: No rash Psychiatric: Cooperative, appropriate mood & affect, normal judgment. Limitations: no limitations Course Vital Signs 11/03/17 11/03/17 10:40 13:37 Temperature 99.1 F Pulse Rate 109 H 99 Respiratory 18 18 Rate Blood Pressure 126/71 136/84 O2 Sat by Pulse 90 L 92 L Oximetry Medical Decision Making - Medical Decision Making Medical decision making; is a 52-year-old male here with family, presents emergency room with multiple complaints patient's loss over 50 pounds in the past several months. Chronic abdominal pain still passing gas no. Bowel movements every other day. Patient has essentially untreated CML, past surgeries for severe adhesions associated with any abdominal surgery. Patient also is being treated for thrush of the esophagus. Labs show white count of 394. Hemoglobin 8.3 hematocrit 26. INR 1.2, potassium 3.9 BUN 17 creatinine 1.6 with a GFR 46. Alk phos 193. BNP 536. Influenza negative. Urine clean no signs of infection. Chest x-ray was done and reviewed by radiologist his impression is diffuse interstitial pattern appears new from a prior exam. This could be associated with interstitial pneumonia or atypical pneumonia. Bronchitis, chronic interstitial lung disease or lymphatic metastasis also in the differential diagnosis. A lack of pleural fluid or use again CHF. Correlate clinically. As read by Dr. Durand 2 views of the abdomen were done reviewed by radiologist his impression is lung bases are clear. There is no bowel obstruction or pneumoperitoneum. No pathologic calcifications evident. Probable vascular calcifications within the pelvis. Generalized increased attenuation seen over the abdomen. Impression there may be underlying ascites. No bowel obstruction evident. As read by Dr. Gutierrez Discussed findings with the patient and family at bedside. I also discussed the case with Dr. alvarez, patient be admitted to her service for further evaluation with consultation from automotive electrical helper Dr. Elder. - Lab Data Result diagrams: 11/03/17 11:31 11/03/17 11:31 Lab Results 11/03/17 11/03/17 11/03/17 Range/Units 11:31 11:31 11:31 WBC 394.7 H* (3.8-10.6) k/uL RBC 2.96 L (4.30-5.90) m/uL Hgb 8.3 L (13.0-17.5) gm/dL Hct 26.1 L (39.0-53.0) % MCV 88.0 (80.0-100.0) fL MCH 28.1 (25.0-35.0) pg MCHC 31.9 (31.0-37.0) g/dL RDW 21.1 H (11.5-15.5) % Plt Count 147 L (150-450) k/uL PT (9.0-12.0) sec INR (<1.2) APTT (22.0-30.0) sec Sodium 137 (137-145) mmol/L Potassium 3.9 (3.5-5.1) mmol/L Chloride 95 L (98-107) mmol/L Carbon Dioxide 31 H (22-30) mmol/L Anion Gap 11 mmol/L BUN 17 (9-20) mg/dL Creatinine 1.60 H (0.66-1.25) mg/dL Est GFR (MDRD) Af Amer 56 (>60 ml/min/1.73 sqM) Est GFR (MDRD) Non-Af 46 (>60 ml/min/1.73 sqM) Glucose 98 (74-99) mg/dL Plasma Lactic Acid Patrice 1.9 (0.7-2.0) mmol/L Calcium 8.8 (8.4-10.2) mg/dL Total Bilirubin 0.6 (0.2-1.3) mg/dL AST 52 (17-59) U/L ALT 24 (21-72) U/L Alkaline Phosphatase 193 H (38-126) U/L NT-Pro-B Natriuret Pep pg/mL Total Protein 6.6 (6.3-8.2) g/dL Albumin 3.5 (3.5-5.0) g/dL Amylase 34 (30-110) U/L Lipase 42 (23-300) U/L Urine Color Urine Appearance (Clear) Urine pH (5.0-8.0) Ur Specific Aurora (1.001-1.035) Urine Protein (Negative) Urine Glucose (UA) (Negative) Urine Ketones (Negative) Urine Blood (Negative) Urine Nitrite (Negative) Urine Bilirubin (Negative) Urine Urobilinogen (<2.0) mg/dL Ur Leukocyte Esterase (Negative) Influenza Type A RNA (Not Detectd) Influenza Type B (PCR) (Not Detectd) 11/03/17 11/03/17 11/03/17 Range/Units 11:31 11:31 11:39 WBC (3.8-10.6) k/uL RBC (4.30-5.90) m/uL Hgb (13.0-17.5) gm/dL Hct (39.0-53.0) % MCV (80.0-100.0) fL MCH (25.0-35.0) pg MCHC (31.0-37.0) g/dL RDW (11.5-15.5) % Plt Count (150-450) k/uL PT 11.8 (9.0-12.0) sec INR 1.2 H (<1.2) APTT 28.5 (22.0-30.0) sec Sodium (137-145) mmol/L Potassium (3.5-5.1) mmol/L Chloride (98-107) mmol/L Carbon Dioxide (22-30) mmol/L Anion Gap mmol/L BUN (9-20) mg/dL Creatinine (0.66-1.25) mg/dL Est GFR (MDRD) Af Amer (>60 ml/min/1.73 sqM) Est GFR (MDRD) Non-Af (>60 ml/min/1.73 sqM) Glucose (74-99) mg/dL Plasma Lactic Acid Patrice (0.7-2.0) mmol/L Calcium (8.4-10.2) mg/dL Total Bilirubin (0.2-1.3) mg/dL AST (17-59) U/L ALT (21-72) U/L Alkaline Phosphatase (38-126) U/L NT-Pro-B Natriuret Pep 536 pg/mL Total Protein (6.3-8.2) g/dL Albumin (3.5-5.0) g/dL Amylase (30-110) U/L Lipase (23-300) U/L Urine Color Urine Appearance (Clear) Urine pH (5.0-8.0) Ur Specific Aurora (1.001-1.035) Urine Protein (Negative) Urine Glucose (UA) (Negative) Urine Ketones (Negative) Urine Blood (Negative) Urine Nitrite (Negative) Urine Bilirubin (Negative) Urine Urobilinogen (<2.0) mg/dL Ur Leukocyte Esterase (Negative) Influenza Type A RNA Not Detected (Not Detectd) Influenza Type B (PCR) Not Detected (Not Detectd) 11/03/17 Range/Units 13:00 WBC (3.8-10.6) k/uL RBC (4.30-5.90) m/uL Hgb (13.0-17.5) gm/dL Hct (39.0-53.0) % MCV (80.0-100.0) fL MCH (25.0-35.0) pg MCHC (31.0-37.0) g/dL RDW (11.5-15.5) % Plt Count (150-450) k/uL PT (9.0-12.0) sec INR (<1.2) APTT (22.0-30.0) sec Sodium (137-145) mmol/L Potassium (3.5-5.1) mmol/L Chloride (98-107) mmol/L Carbon Dioxide (22-30) mmol/L Anion Gap mmol/L BUN (9-20) mg/dL Creatinine (0.66-1.25) mg/dL Est GFR (MDRD) Af Amer (>60 ml/min/1.73 sqM) Est GFR (MDRD) Non-Af (>60 ml/min/1.73 sqM) Glucose (74-99) mg/dL Plasma Lactic Acid Patrice (0.7-2.0) mmol/L Calcium (8.4-10.2) mg/dL Total Bilirubin (0.2-1.3) mg/dL AST (17-59) U/L ALT (21-72) U/L Alkaline Phosphatase (38-126) U/L NT-Pro-B Natriuret Pep pg/mL Total Protein (6.3-8.2) g/dL Albumin (3.5-5.0) g/dL Amylase (30-110) U/L Lipase (23-300) U/L Urine Color Yellow Urine Appearance Clear (Clear) Urine pH 5.5 (5.0-8.0) Ur Specific Aurora 1.009 (1.001-1.035) Urine Protein Trace H (Negative) Urine Glucose (UA) Negative (Negative) Urine Ketones Negative (Negative) Urine Blood Negative (Negative) Urine Nitrite Negative (Negative) Urine Bilirubin Negative (Negative) Urine Urobilinogen 2.0 (<2.0) mg/dL Ur Leukocyte Esterase Negative (Negative) Influenza Type A RNA (Not Detectd) Influenza Type B (PCR) (Not Detectd) Disposition Clinical Impression: CML (chronic myelocytic leukemia), Ascites, Weight loss, abnormal Disposition: ADMITTED IP TO THIS HOSP Condition: Serious Referrals: Diego Mao MD [Primary Care Provider] - 1-2 days
[2017-11-03 11:50] LABS: Anisocytosis Moderate; HCT 26.1 % (39.0-53.0); HGB 8.3 gm/dL (13.0-17.5); Hypochromasia Marked; MCH 28.1 pg (25.0-35.0); MCHC 31.9 g/dL (31.0-37.0); Mean Platelet Volume 13.3; Platelet Count 147 k/uL (150-450); RBC 2.96 m/uL (4.30-5.90); RDW 21.1 % (11.5-15.5)
[2017-11-03] MEDS ORDERED: NICOTINE 21MG/24HR PATCH TRANSDERM STA (11:50)
[2017-11-03 11:58] LABS: INR 1.2 (<1.2); Partial Thromboplastin Time 28.5 sec (22.0-30.0); Prothrombin Time 11.8 sec (9.0-12.0)
[2017-11-03 12:00] LABS: Albumin 3.5 g/dL (3.5-5.0); Calcium 8.8 mg/dL (8.4-10.2); Potassium 3.9 mmol/L (3.5-5.1); Total Bilirubin 0.6 mg/dL (0.2-1.3); Total Protein 6.6 g/dL (6.3-8.2)
--- NOTE | 2017-11-03 12:30 | XR ---
EXAMINATION TYPE: XR chest 2V DATE OF EXAM: 11/03/2017 COMPARISON: 10/26/2016 TECHNIQUE: PA and lateral views submitted. HISTORY: Pain FINDINGS: The lungs are clear and there is no pneumothorax, pleural effusion, or focal pneumonia. There is a diffuse interstitial pattern. IMPRESSION: 1. Diffuse interstitial pattern appears new from the prior exam. This could be associated with inters titial pneumonia or atypical pneumonia. Bronchitis, chronic interstitial lung disease or lymphangitic metastases also in the differential diagnosis. Lack of pleural fluid argues against CHF. Correlate c linically.
--- NOTE | 2017-11-03 12:31 | XR ---
2 view abdomen HISTORY: Pain 2 views of the abdomen on 3 images Lung bases are clear. There is no bowel obstruction or pneumoperitoneum. No pathologic calcification is evident. Probable vascular calcifications within the pelvis. Generalized increased attenuation see n over the abdomen. IMPRESSION: There may be underlying ascites. No bowel obstruction evident.
[2017-11-03 13:24] LABS: Appearance,Urine Clear (Clear); Bilirubin,Urine Negative (Negative); Blood,Urine Negative (Negative); Color,Urine Yellow; Glucose,Urine (UA) Negative (Negative); Ketones,Urine Negative (Negative); Leukocyte Esterase,Urine Negative (Negative); Nitrite,Urine Negative (Negative); PH, Urine 5.5 (5.0-8.0); Protein,Urine Trace (Negative); Specific Gravity,Urine 1.009 (1.001-1.035)
[2017-11-03] MEDS ORDERED: NALOXONE 0.4 MG/ML 1 ML VIAL IV PRN (13:54)
[2017-11-03] MEDS ORDERED: ZOLPIDEM 10 MG TAB PO PRN (13:58)
[2017-11-03 14:07] LABS: Band Neutrophils % 9 %; Metamyelocytes % 9 %; Myelocytes % 17 %; Neutrophils % (M) 48 %; Nucleated Red Blood Cells 1 /100 WBC (0-0); Promyelocytes % 7 %; Total Cells Counted 200
[2017-11-03 14:08] LABS: Blast Cells # (M) 7.82 k/uL (0); Eosinophils # (M) 31.26 k/uL (0-0.7); Lymphocytes # (M) 7.82 k/uL (1.0-4.8); Metamyelocytes # (M) 35.17 k/uL (0); Monocytes # (M) 3.91 k/uL (0-1.0); Myelocytes # (M) 66.44 k/uL (0); Promyelocytes # (M) 27.36 k/uL (0); WBC 390.8 k/uL (3.8-10.6)
[2017-11-03 14:09] LABS: Poikilocytosis (M) Present; Polychromasia Present; Target Cells Present
[2017-11-03] MEDS: HYDROmorphone 0.5 MG/0.5 ML SYRINGE IVP PRN ×2 (16:57→22:46)
--- NOTE | 2017-11-03 16:57 | CT ---
EXAMINATION TYPE: CT chest wo con DATE OF EXAM: 11/03/2017 COMPARISON: Chest x-ray same date HISTORY: shortness of breath CT DLP: 494.9 mGycm. Automated Exposure Control for Dose Reduction was Utilized. TECHNIQUE: CT scan of the thorax is performed without IV contrast. FINDINGS: LUNGS: There are extensive centrilobular emphysematous changes present especially at the upper lobes. No evident lung mass. Some minimal thickening of parenchymal bands noted in the right upper lobe, ri ght lower lobe. No pleural or pericardial effusion is evident. Some minimal dependent atelectatic macarena nge present greater on the right. Lack of contrast could compromise sensitivity. There is no pleural effusion or pneumothorax seen. The tracheobronchial tree is patent. MEDIASTINUM: Lack of IV contrast is noted to limit evaluation for mediastinal and especially hilar ad enopathy. There are no definitive greater than 1 cm hilar or mediastinal lymph nodes. No cardiomega ly, there is a small pericardial effusion seen. OTHER: The spleen is markedly enlarged. Liver is thought to be enlarged. IMPRESSION: Emphysema. Marked hepatosplenomegaly. Nonspecific findings in the lungs as described may be inflammatory.
[2017-11-03] MEDS: NYSTATIN 100,000 UNIT/ML SUSP 500,000 UNIT/5 ML CUP PO SCH ×2 (16:59→22:47)
[2017-11-03] MEDS: SODIUM CHLORIDE 0.9% 1,000 ML IV SCH (17:00)
[2017-11-03] MEDS: ONDANSETRON 4 MG/2 ML VIAL IVP PRN (17:07)
--- NOTE | 2017-11-03 17:10 | P.HPIM ---
History of Present Illness 52-year-old male multiple complaints multiple medical problems. The patient reports over the past several months she's lost over 50 pounds. Past medical problems significant for CML which she's not being treated for her years. H Patient reports difficulty with vision includes central loss of vision better peripheral vision. Ongoing for 1 month. Patient also reports being treated for thrush which goes away in his mouth on with some odynophagia. The patient' s complaint today of abdominal pain. Decreased a poor appetite. Patient came in because of abdominal pain patient has ventral hernia and a mesh in the place and patient the use to follow with Dr. Huston as an outpatient in the past. Patient is also concerned about Ascites. Chest exam was done which showed interstitial infiltrates, abdominal x-ray is concerning for gastritis. Patient clinically does have hepatomegaly and spleen medically. Patient has highly elevated white blood cell count and the pathologist called is about blast crisis and oncology was consulted. Pulmonology evaluated the patient. Review of Systems REVIEW OF SYSTEMS: CONSTITUTIONAL: No fever, no malaise, HEENT: No recent visual problems or hearing problems. Denied any sore throat. CARDIOVASCULAR: No chest pain, orthopnea, PND, no palpitations, no syncope. PULMONARY: No shortness of breath, no cough, no hemoptysis. GASTROINTESTINAL: No diarrhea, no nausea, no vomiting, NEUROLOGICAL: No headaches, no weakness, no numbness. HEMATOLOGICAL: Denies any bleeding or petechiae. GENITOURINARY: Denies any burning micturition, frequency, or urgency. MUSCULOSKELETAL/RHEUMATOLOGICAL: Denies any joint pain, swelling, or any muscle pain. ENDOCRINE: Denies any polyuria or polydipsia. The rest of the 14-point review of systems is negative. 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 - "CHEMO WON'T WORK") 2 past iluesHIATAL HERNIA(had sx), chronic pain syndrome,ventral hernia, leg/feet edema,ascities thrush,at times diffiuclty swallowing(would like a stronger medication to take it away) History of Any Multi-Drug Resistant Organisms: None Reported Past Surgical History: Adenoidectomy, Appendectomy, Bowel Resection, Hernia Repair, Tonsillectomy Additional Past Surgical History / Comment(s): STATES MULTIPLE STOMACH SX, MULT ADHESIONS, HAS SURGICAL STEEL MESH IN INCISIONAL HERNIA, HIATAL HERNIA SX AND LYSIS OF ADHESIONS Additional Past Anesthesia/Blood Transfusion Reaction / Comment(s): STATES OCCASIONALLY WAKES UP VIOLENT, AND NEEDS TO HAVE "WRISTS CUFFED" Smoking Status: Current every day smoker - Past Family History Father Additional Family Medical History / Comment(s): HEART PROBLEMS Mother Family Medical History: No Reported History Additional Family Medical History / Comment(s): "HEALTHY". ' Medications and Allergies Home Medications Medication Instructions Recorded Confirmed Type Ondansetron [Zofran ODT] 8 mg PO Q12H PRN 12/16/14 11/03/17 History fentaNYL 25MCG/HR PATCH [Duragesic 1 applic TOPICAL Q72H 12/16/14 11/03/17 History 25MCG/HR] ALPRAZolam [Xanax] 2 mg PO Q6H PRN 11/03/17 11/03/17 History Ibuprofen [Motrin] 800 mg PO Q8H 11/03/17 11/03/17 History Nystatin 100,000 Unit/ml Susp 2.5 ml PO QID 11/03/17 11/03/17 History [Mycostatin Oral Susp] Zolpidem [Ambien] 10 mg PO HS PRN 11/03/17 11/03/17 History oxyCODONE HCL 15 mg PO Q2H PRN 11/03/17 11/03/17 History Allergies Allergy/AdvReac Type Severity Reaction Status Date / Time metoclopramide HCl Allergy Unknown Verified 11/03/17 10:57 [From Reglan] meperidine HCl [From Demerol] AdvReac Vein Verified 11/03/17 10:57 redness Physical Exam Vitals: Vital Signs Temp Pulse Pulse Resp BP BP Pulse Ox 11/03/17 16:57 99.8 F H 102 H 16 127/81 93 L 11/03/17 16:00 22 11/03/17 15:00 97.9 F 94 16 148/74 92 L 11/03/17 13:37 99 18 136/84 92 L 11/03/17 10:40 99.1 F 109 H 18 126/71 90 L Intake and Output 11/03/17 11/03/17 11/03/17 06:59 14:59 22:59 Other: Weight 91.626 kg 91.6 kg Patient Weight 11/04/17 06:59 Weight 91.6 kg PHYSICAL EXAMINATION: GENERAL: The patient is alert and oriented x3, not in any acute distress. Well developed, well nourished. HEENT: Pupils are round and equally reacting to light. EOMI. No scleral icterus. No conjunctival pallor. Normocephalic, atraumatic. No pharyngeal erythema. No thyromegaly. CARDIOVASCULAR: S1 and S2 present. No murmurs, rubs, or gallops. PULMONARY: Chest is clear to auscultation, no wheezing or crackles. ABDOMEN: Abdomen is distended patient does have hepatosplenomegaly minimal diffuse tenderness was appreciated, I cannot appreciate any shifting dullness because of lot of abdominal viscus on palpation. And there is a ventral hernia MUSCULOSKELETAL: No joint swelling or deformity. EXTREMITIES: No cyanosis, clubbing, or pedal edema. NEUROLOGICAL: Gross neurological examination did not reveal any focal deficits. SKIN: No rashes. Results CBC & Chem 7: 11/03/17 11:31 11/03/17 11:31 Labs: Abnormal Lab Results - Last 24 Hours (Table) 11/03/17 11/03/17 11/03/17 Range/Units 11:31 11:31 11:31 WBC 390.8 H* (3.8-10.6) k/uL RBC 2.96 L (4.30-5.90) m/uL Hgb 8.3 L (13.0-17.5) gm/dL Hct 26.1 L (39.0-53.0) % RDW 21.1 H (11.5-15.5) % Plt Count 147 L (150-450) k/uL Neutrophils # (Manual) 222.70 H (1.3-7.7) k/uL Lymphocytes # (Manual) 7.82 H (1.0-4.8) k/uL Monocytes # (Manual) 3.91 H (0-1.0) k/uL Eosinophils # (Manual) 31.26 H (0-0.7) k/uL Metamyelocytes # (Man) 35.17 H (0) k/uL Myelocytes # (Manual) 66.44 H (0) k/uL Promyelocytes # (Man) 27.36 H (0) k/uL Blast Cells # (Man) 7.82 H (0) k/uL Nucleated RBCs 1 H (0-0) /100 WBC Pathologist Review See comment A INR 1.2 H (<1.2) Chloride 95 L (98-107) mmol/L Carbon Dioxide 31 H (22-30) mmol/L Creatinine 1.60 H (0.66-1.25) mg/dL Alkaline Phosphatase 193 H (38-126) U/L Urine Protein (Negative) 11/03/17 Range/Units 13:00 WBC (3.8-10.6) k/uL RBC (4.30-5.90) m/uL Hgb (13.0-17.5) gm/dL Hct (39.0-53.0) % RDW (11.5-15.5) % Plt Count (150-450) k/uL Neutrophils # (Manual) (1.3-7.7) k/uL Lymphocytes # (Manual) (1.0-4.8) k/uL Monocytes # (Manual) (0-1.0) k/uL Eosinophils # (Manual) (0-0.7) k/uL Metamyelocytes # (Man) (0) k/uL Myelocytes # (Manual) (0) k/uL Promyelocytes # (Man) (0) k/uL Blast Cells # (Man) (0) k/uL Nucleated RBCs (0-0) /100 WBC Pathologist Review INR (<1.2) Chloride (98-107) mmol/L Carbon Dioxide (22-30) mmol/L Creatinine (0.66-1.25) mg/dL Alkaline Phosphatase (38-126) U/L Urine Protein Trace H (Negative) Assessment and Plan Plan: -Abdominal pain probably related to ventral hernia along with habitus minimally from chronic myeloid leukemia. -Atypical interstitial infiltrate on the CAT scan and CT probably related to his CML with blast crisis. -Leukocytosis with white blood cell count going up to 360,000 patient has CML with blast crisis as mentioned above oncology was consulted patient in the past declined any chemotherapy. -Acute renal failure: Secondary to nonsteroidal anti-inflammatories or intravascular volume depletion. Nonsteroidal anti-inflammatory disease will be held -Fungal esophagitis and oral thrush: Patient will be started on IV flucanazole -Weight loss and cachexia secondary to chronic myeloid leukemia -Bilateral lower extremity edema probably due to hypoalbuminemia and malnutrition moderate secondary to cancer cachexia. -Gastroesophageal reflux disease.
--- NOTE | 2017-11-03 17:33 | P.CNPUL ---
History of Present Illness Consult date: 11/03/17 Requesting physician: Orlin Laird Reason for consult: abnormal CXR/CT, other Chief complaint: Interstitial pattern on chest x-ray, related to leukemic infiltrates History of present illness: Bryant is a 52-year-old white male patient of Dr. Diego Mao, who presented to the emergency department on 11/03/2017 at 1018 with complaints of unintentional weight loss of over 50 pounds over the last few months, loss of appetite, increased abdominal distention, increasing difficulty with his vision, oral thrush, abdominal pain and overall generalized weakness. Patient has an underlying history of CML for which she used to see Dr. Walters from medical oncology, however he has not been receiving any treatment for it in the last few years. Currently patient just sees his family physician, he stop seeing Dr. Walters after a medication that was prescribed by Dr. Walters has reportedly caused him to have hypertension. Did complain of increasing swelling in his bilateral lower extremities, increasing abdominal girth, nausea, but no vomiting. Patient has had a Myke fundoplication by Dr. Martinez in the past , who has also advised him not to have a EGD because of the thinness of his esophagus. Reports some discomfort with swallowing. He denies any acute pulmonary complaints, denies any acute dyspnea, chest congestion, sputum production, or chest wall tenderness. Patient also reports a significantly enlarged painful spleen. Past medical problems include CML, untreated, GERD, hypertension, depression, chronic pain syndrome on OxyContin, GERD/reflux. Patient's surgical history is significant for appendectomy, bowel resection, hernia repair, incisional hernia repairs, fundoplication. Patient is a former smoker. Patient's chest x-ray was positive for diffuse interstitial pattern, which was a new finding compared to prior exam. Given the patient's history of CML, these are leukemic infiltrates. Patient is not having any pulmonary symptoms. He is afebrile, denies any chest congestion, sputum production, any dyspnea. Denies any chest wall tenderness. Abdominal x-ray suggested underlying ascites, but no bowel obstruction. Lab work showed WBC of 390.8, hemoglobin of 8.3, lately count of 147. The peripheral smear demonstrated marked leukocytosis with a severe left shift and numerous circulating immature myeloid cells, compatible with the patient's history of CML. Sodium was 137, potassium is 3.9, chloride is 95, carbon dioxide is 31, BUN is 17, creatinine is 1.60. Plasma lactic acid was 1.9, alk phos was 193, proBNP was within normal limits for his age, at 536. Amylase lipase were within normal limits, at 34 and 42 respectively. Urinalysis was negative, influenza screen was negative. We were asked to see the patient in consultation in regards to the interstitial pattern seen on the chest x-ray. Review of Systems All systems: negative Constitutional: Reports anorexia, Reports chronic pain, Reports poor appetite, Reports weakness, Reports weight loss, Denies chills, Denies fever Eyes: denies blurred vision, denies pain Ears, nose, mouth and throat: Denies headache, Denies sore throat Cardiovascular: Denies chest pain, Denies shortness of breath Respiratory: Denies cough Gastrointestinal: Reports loss of appetite, Denies abdominal pain, Denies diarrhea, Denies nausea, Denies vomiting Musculoskeletal: Denies myalgias Integumentary: Denies pruritus, Denies rash Neurological: Denies numbness, Denies weakness Psychiatric: Denies anxiety, Denies depression Endocrine: Denies fatigue, Denies weight change 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 - "CHEMO WON'T WORK") 2 past iluesHIATAL HERNIA(had sx), chronic pain syndrome,ventral hernia, leg/feet edema,ascities thrush,at times diffiuclty swallowing(would like a stronger medication to take it away) History of Any Multi-Drug Resistant Organisms: None Reported Past Surgical History: Adenoidectomy, Appendectomy, Bowel Resection, Hernia Repair, Tonsillectomy Additional Past Surgical History / Comment(s): STATES MULTIPLE STOMACH SX, MULT ADHESIONS, HAS SURGICAL STEEL MESH IN INCISIONAL HERNIA, HIATAL HERNIA SX AND LYSIS OF ADHESIONS Additional Past Anesthesia/Blood Transfusion Reaction / Comment(s): STATES OCCASIONALLY WAKES UP VIOLENT, AND NEEDS TO HAVE "WRISTS CUFFED" Smoking Status: Current every day smoker - Past Family History Father Additional Family Medical History / Comment(s): HEART PROBLEMS Mother Family Medical History: No Reported History Additional Family Medical History / Comment(s): "HEALTHY". ' Medications and Allergies Home Medications Medication Instructions Recorded Confirmed Type Ondansetron [Zofran ODT] 8 mg PO Q12H PRN 12/16/14 11/03/17 History fentaNYL 25MCG/HR PATCH [Duragesic 1 applic TOPICAL Q72H 12/16/14 11/03/17 History 25MCG/HR] ALPRAZolam [Xanax] 2 mg PO Q6H PRN 11/03/17 11/03/17 History Ibuprofen [Motrin] 800 mg PO Q8H 11/03/17 11/03/17 History Nystatin 100,000 Unit/ml Susp 2.5 ml PO QID 11/03/17 11/03/17 History [Mycostatin Oral Susp] Zolpidem [Ambien] 10 mg PO HS PRN 11/03/17 11/03/17 History oxyCODONE HCL 15 mg PO Q2H PRN 11/03/17 11/03/17 History Allergies Allergy/AdvReac Type Severity Reaction Status Date / Time metoclopramide HCl Allergy Unknown Verified 11/03/17 10:57 [From Reglan] meperidine HCl [From Demerol] AdvReac Vein Verified 11/03/17 10:57 redness Physical Exam Vitals: Vital Signs Temp Pulse Resp BP Pulse Ox 11/03/17 16:00 22 11/03/17 15:00 97.9 F 94 16 148/74 92 L 11/03/17 13:37 99 18 136/84 92 L 11/03/17 10:40 99.1 F 109 H 18 126/71 90 L Intake and Output 11/03/17 11/03/17 11/03/17 06:59 14:59 22:59 Other: Weight 91.626 kg 91.6 kg Patient Weight 11/04/17 06:59 Weight 91.6 kg GENERAL EXAM: Alert, pleasant, 52-year-old white male, slightly pale, but in no acute distress. HEAD: Normocephalic/atraumatic. EYES: Normal reaction of pupils, equal size. Conjunctiva pink, sclera white. NOSE: Clear with pink turbinates. THROAT: No erythema or exudates. NECK: No masses, no JVD, no thyroid enlargement, no adenopathy. CHEST: No chest wall deformity. Symmetrical expansion. LUNGS: Equal air entry with no crackles, wheeze, rhonchi or dullness. CVS: Regular rate and rhythm, normal S1 and S2, no gallops, no murmurs, no rubs ABDOMEN: Abdomen is large and distended, there is obvious splenomegaly, tender to palpation. There are multiple healed abdominal scars EXTREMITIES: No clubbing,no cyanosis, 2+ pulses and upper and lower extremities. Patient has extensive bilateral lower extremity edema, 3+ pitting edema, extending into his lower abdominal area, anasarca MUSCULOSKELETAL: Muscle strength and tone normal. SPINE: No scoliosis or deformity SKIN: No rashes CENTRAL NERVOUS SYSTEM: Alert and oriented -3. No focal deficits, tone is normal in all 4 extremities. PSYCHIATRIC: Alert and oriented -3. Appropriate affect. Intact judgment and insight. Results - Laboratory Findings CBC and BMP: 11/03/17 11:31 11/03/17 11:31 PT/INR, D-dimer PT 11.8 sec (9.0-12.0) 11/03/17 11:31 INR 1.2 (<1.2) H 11/03/17 11:31 Abnormal lab findings: Abnormal Labs 11/03/17 11/03/17 11/03/17 11:31 11:31 11:31 WBC 390.8 H* RBC 2.96 L Hgb 8.3 L Hct 26.1 L RDW 21.1 H Plt Count 147 L Neutrophils # (Manual) 222.70 H Lymphocytes # (Manual) 7.82 H Monocytes # (Manual) 3.91 H Eosinophils # (Manual) 31.26 H Metamyelocytes # (Man) 35.17 H Myelocytes # (Manual) 66.44 H Promyelocytes # (Man) 27.36 H Blast Cells # (Man) 7.82 H Nucleated RBCs 1 H Pathologist Review See comment A INR 1.2 H Chloride 95 L Carbon Dioxide 31 H Creatinine 1.60 H Alkaline Phosphatase 193 H Urine Protein 11/03/17 13:00 WBC RBC Hgb Hct RDW Plt Count Neutrophils # (Manual) Lymphocytes # (Manual) Monocytes # (Manual) Eosinophils # (Manual) Metamyelocytes # (Man) Myelocytes # (Manual) Promyelocytes # (Man) Blast Cells # (Man) Nucleated RBCs Pathologist Review INR Chloride Carbon Dioxide Creatinine Alkaline Phosphatase Urine Protein Trace H - Diagnostic Findings Chest x-ray: report reviewed CT scan - chest: report reviewed Assessment and Plan Plan: Assessment: #1. Unintentional weight loss of over 50 pounds in the course of a few months, loss of appetite, weakness, most likely related to untreated CML. #2. Marked leukocytosis with a severe left shift, patient presented with WBC of 390.8, related to untreated CML #3. Diffuse interstitial pattern seen on the chest x-ray, related to leukemic infiltrates in a patient with a history of chronic myelogenus leukemia #4. Anasarca, severe pitting peripheral edema, increased abdominal girth, possibly related to relative hypoalbuminemia #5. Acute kidney injury, of unclear etiology, possibly related to ATN or hypertension #6. Chronic myeloid leukemia, with history of noncompliance with chronic myeloid leukemia treatment #7. Hypertension #8. History of nicotine dependence #9. Depression #10. Gastroesophageal reflux disease #11. History of COPD, currently stable #12. History of multiple abdominal surgeries, including Myke fundoplication, bowel resection, incisional hernia repairs. Plan: We will obtain CT chest without contrast. The interstitial pattern seen on the chest x-ray is likely related to leukemic infiltrates given the patient's history of untreated chronic myeloid leukemia. Recommend medical oncology consultation. Recommend empiric antibiotics, although patient denies any acute dyspnea, cough, chest congestion or sputum production. Recommend Diuretics for patient's anasarca. Paracentesis for the evidence of ascites. We'll continue to follow with you. I performed a history & physical examination of the patient and discussed their management with my nurse practitioner, Nicole Miller. I reviewed the nurse practitioner's note and agree with the documented findings and plan of care. Lung sounds are clear. The findings and the impression was discussed with the patient. I attest to the documentation by the nurse practitioner. Time with Patient: Greater than 30
[2017-11-03] MEDS: FLUCONAZOLE IN NACL,ISO-OSM 100 MG in SALINE 1 50ML.BAG IVPB SCH (18:42)
[2017-11-03] MEDS ORDERED: SENNOSIDES-DOCUSATE SODIUM 1 EACH TAB PO STA (20:46)
[2017-11-04] MEDS: SODIUM CHLORIDE 0.9% 1,000 ML IV SCH (02:16)
[2017-11-04] MEDS: HYDROmorphone 0.5 MG/0.5 ML SYRINGE IVP PRN ×3 (07:18→21:11)
[2017-11-04 07:22] LABS: Calcium 8.5 mg/dL (8.4-10.2); Potassium 4.2 mmol/L (3.5-5.1)
[2017-11-04 07:27] LABS: Anisocytosis Moderate; HCT 24.4 % (39.0-53.0); Hypochromasia Marked; MCH 36.3 pg (25.0-35.0); MCV 90.1 fL (80.0-100.0); Mean Platelet Volume 10.5; Platelet Count 106 k/uL (150-450); RBC 2.71 m/uL (4.30-5.90); RDW 20.7 % (11.5-15.5)
[2017-11-04 07:30] LABS: HGB 9.9 gm/dL (13.0-17.5); MCHC 40.3 g/dL (31.0-37.0); WBC 365.9 k/uL (3.8-10.6)
[2017-11-04] MEDS: ALPRAZolam 0.5 MG TAB PO PRN (07:45)
[2017-11-04] MEDS: NYSTATIN 100,000 UNIT/ML SUSP 500,000 UNIT/5 ML CUP PO SCH ×4 (07:45→21:11)
[2017-11-04] MEDS: ONDANSETRON 4 MG/2 ML VIAL IVP PRN ×2 (07:45→18:09)
[2017-11-04] MEDS: FLUCONAZOLE IN NACL,ISO-OSM 100 MG in SALINE 1 50ML.BAG IVPB SCH (07:45)
[2017-11-04] MEDS ORDERED: POLYETHYLENE GLYCOL 3350 17 GM POWD.PACK PO PRN (08:37)
--- NOTE | 2017-11-04 08:48 | P.PN ---
Subjective 52-year-old with chronic untreated the chronic myeloid leukemia given with the generalized weight loss from came 8 cells and apicitis will do some 20 treatment for bursitis patient was coming of abdominal pain is constipated is on multiple opiate medications counseling was provided patient was started on MiraLAX as well patient may need a suppository. The patient's patient has multiple abdominal surgeries and patient has a ventral hernia because of which general surgery was consulted. Patient denied any fever chills nausea vomiting today. Patient is still complaining of abdominal pain. Objective - Vital Signs Vital signs: Vital Signs Temp 98.9 F 11/04/17 07:00 Pulse 95 11/04/17 07:00 Resp 16 11/04/17 07:00 BP 120/57 11/04/17 07:00 Pulse Ox 92 L 11/04/17 07:00 Intake & Output 11/03/17 11/04/17 11/04/17 18:59 06:59 18:59 Weight 91.6 kg Other: # Voids 2 - Exam PHYSICAL EXAMINATION: GENERAL: The patient is alert and oriented x3, not in any acute distress. Well developed, well nourished. HEENT: Pupils are round and equally reacting to light. EOMI. No scleral icterus. No conjunctival pallor. Normocephalic, atraumatic. No pharyngeal erythema. No thyromegaly. CARDIOVASCULAR: S1 and S2 present. No murmurs, rubs, or gallops. PULMONARY: Chest is clear to auscultation, no wheezing or crackles. ABDOMEN: Abdomen is distended patient does have hepatosplenomegaly minimal diffuse tenderness was appreciated, I cannot appreciate any shifting dullness because of lot of abdominal viscus on palpation. And there is a ventral hernia MUSCULOSKELETAL: No joint swelling or deformity. EXTREMITIES: No cyanosis, clubbing, or pedal edema. NEUROLOGICAL: Gross neurological examination did not reveal any focal deficits. SKIN: No rashes. - Labs CBC & Chem 7: 11/04/17 06:41 11/04/17 06:41 Labs: Abnormal Lab Results - Last 24 Hours (Table) 11/03/17 11/03/17 11/03/17 Range/Units 11:31 11:31 11:31 WBC 390.8 H* (3.8-10.6) k/uL RBC 2.96 L (4.30-5.90) m/uL Hgb 8.3 L (13.0-17.5) gm/dL Hct 26.1 L (39.0-53.0) % MCH (25.0-35.0) pg MCHC (31.0-37.0) g/dL RDW 21.1 H (11.5-15.5) % Plt Count 147 L (150-450) k/uL Neutrophils # (Manual) 222.70 H (1.3-7.7) k/uL Lymphocytes # (Manual) 7.82 H (1.0-4.8) k/uL Monocytes # (Manual) 3.91 H (0-1.0) k/uL Eosinophils # (Manual) 31.26 H (0-0.7) k/uL Metamyelocytes # (Man) 35.17 H (0) k/uL Myelocytes # (Manual) 66.44 H (0) k/uL Promyelocytes # (Man) 27.36 H (0) k/uL Blast Cells # (Man) 7.82 H (0) k/uL Nucleated RBCs 1 H (0-0) /100 WBC Pathologist Review See comment A INR 1.2 H (<1.2) Chloride 95 L (98-107) mmol/L Carbon Dioxide 31 H (22-30) mmol/L Creatinine 1.60 H (0.66-1.25) mg/dL Alkaline Phosphatase 193 H (38-126) U/L Urine Protein (Negative) 11/03/17 11/04/17 11/04/17 Range/Units 13:00 06:41 06:41 WBC 365.9 H* (3.8-10.6) k/uL RBC 2.71 L (4.30-5.90) m/uL Hgb 9.9 L D (13.0-17.5) gm/dL Hct 24.4 L (39.0-53.0) % MCH 36.3 H (25.0-35.0) pg MCHC 40.3 H (31.0-37.0) g/dL RDW 20.7 H (11.5-15.5) % Plt Count 106 L (150-450) k/uL Neutrophils # (Manual) (1.3-7.7) k/uL Lymphocytes # (Manual) (1.0-4.8) k/uL Monocytes # (Manual) (0-1.0) k/uL Eosinophils # (Manual) (0-0.7) k/uL Metamyelocytes # (Man) (0) k/uL Myelocytes # (Manual) (0) k/uL Promyelocytes # (Man) (0) k/uL Blast Cells # (Man) (0) k/uL Nucleated RBCs (0-0) /100 WBC Pathologist Review INR (<1.2) Chloride (98-107) mmol/L Carbon Dioxide (22-30) mmol/L Creatinine 1.66 H (0.66-1.25) mg/dL Alkaline Phosphatase (38-126) U/L Urine Protein Trace H (Negative) Microbiology - Last 24 Hours (Table) 11/03/17 13:00 Urine Culture - Preliminary Urine,Voided Assessment and Plan Plan: -Abdominal pain probably related to ventral hernia along with constipation MiraLAX and Colace. Surgery was consulted because of his abdominal hernia multiple surgeries in the past. -Atypical interstitial infiltrate on the CAT scan and CT probably related to his CML with blast crisis. -Leukocytosis with white blood cell count going up to 360,000 patient has CML with blast crisis as mentioned above oncology was consulted patient in the past declined any chemotherapy. -Acute renal failure: Secondary to nonsteroidal anti-inflammatories or intravascular volume depletion but patient has third spacing because of which we will do symptomatically treatment for ascites and pedal edema with Lasix. Nonsteroidal anti-inflammatory disease will be held -Fungal esophagitis and oral thrush: Patient will be started on IV flucanazole -Weight loss and cachexia secondary to chronic myeloid leukemia -Bilateral lower extremity edema probably due to hypoalbuminemia and malnutrition moderate secondary to cancer cachexia. -Gastroesophageal reflux disease.
[2017-11-04] MEDS ORDERED: PANTOPRAZOLE 40 MG/10 ML VIAL IV SCH (09:00)
[2017-11-04] MEDS: FUROSEMIDE 10 MG/ML 4 ML VIAL IV SCH ×2 (11:55→21:12)
--- NOTE | 2017-11-04 12:16 | P.GSCN ---
History of Present Illness Consult date: 11/04/17 Reason for Consult: Abdominal pain History of present illness: Patient came to the hospital with complaints of abdominal pain. He has noticed increased abdominal swelling. He has a history of CML which is resistant to treatment. He has a history of previous abdominal surgeries bowel obstructions and hiatal hernia. His noticed a swelling in the left midabdomen. CAT scan was performed after he came to the hospital which revealed marked hepatosplenomegaly. The patient has nausea and intermittent vomiting. He is not eating much. Infrequent bowel movements as well. 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 - "CHEMO WON'T WORK") 2 past iluesHIATAL HERNIA(had sx), chronic pain syndrome,ventral hernia, leg/feet edema,ascities thrush,at times diffiuclty swallowing(would like a stronger medication to take it away) History of Any Multi-Drug Resistant Organisms: None Reported Past Surgical History: Adenoidectomy, Appendectomy, Bowel Resection, Hernia Repair, Tonsillectomy Additional Past Surgical History / Comment(s): STATES MULTIPLE STOMACH SX, MULT ADHESIONS, HAS SURGICAL STEEL MESH IN INCISIONAL HERNIA, HIATAL HERNIA SX AND LYSIS OF ADHESIONS Additional Past Anesthesia/Blood Transfusion Reaction / Comm: STATES OCCASIONALLY WAKES UP VIOLENT, AND NEEDS TO HAVE "WRISTS CUFFED" Smoking Status: Current every day smoker - Past Family History Father Additional Family Medical History / Comment(s): HEART PROBLEMS Mother Family Medical History: No Reported History Additional Family Medical History / Comment(s): "HEALTHY". ' Medications and Allergies Home Medications Medication Instructions Recorded Confirmed Type Ondansetron [Zofran ODT] 8 mg PO Q12H PRN 12/16/14 11/03/17 History fentaNYL 25MCG/HR PATCH [Duragesic 1 applic TOPICAL Q72H 12/16/14 11/03/17 History 25MCG/HR] ALPRAZolam [Xanax] 2 mg PO Q6H PRN 11/03/17 11/03/17 History Ibuprofen [Motrin] 800 mg PO Q8H 11/03/17 11/03/17 History Nystatin 100,000 Unit/ml Susp 2.5 ml PO QID 11/03/17 11/03/17 History [Mycostatin Oral Susp] Zolpidem [Ambien] 10 mg PO HS PRN 11/03/17 11/03/17 History oxyCODONE HCL 15 mg PO Q2H PRN 11/03/17 11/03/17 History Allergies Allergy/AdvReac Type Severity Reaction Status Date / Time metoclopramide HCl Allergy Unknown Verified 11/03/17 10:57 [From Reglan] meperidine HCl [From Demerol] AdvReac Vein Verified 11/03/17 10:57 redness Surgical - Exam Vital Signs Temp Pulse Resp BP Pulse Ox 99.1 F 109 H 18 126/71 90 L 11/03/17 10:40 11/03/17 10:40 11/03/17 10:40 11/03/17 10:40 11/03/17 10:40 Physical exam: General: Malnourished, appears older than stated age HEENT: Normocephalic, sclerae nonicteric Abdomen: Distended, palpable mass left midabdomen consistent with probable splenomegaly, mild diffuse tenderness Extremities: Significant bilateral lower extremity edema Neuro: Alert and oriented Results - Labs 11/04/17 06:41 11/04/17 06:41 Abnormal Lab Results - Last 24 Hours (Table) 11/03/17 11/03/17 11/04/17 Range/Units 11:31 13:00 06:41 WBC 390.8 H* 365.9 H* (3.8-10.6) k/uL RBC 2.96 L 2.71 L (4.30-5.90) m/uL Hgb 8.3 L 9.9 L D (13.0-17.5) gm/dL Hct 26.1 L 24.4 L (39.0-53.0) % MCH 36.3 H (25.0-35.0) pg MCHC 40.3 H (31.0-37.0) g/dL RDW 21.1 H 20.7 H (11.5-15.5) % Plt Count 147 L 106 L (150-450) k/uL Neutrophils # (Manual) 222.70 H (1.3-7.7) k/uL Lymphocytes # (Manual) 7.82 H (1.0-4.8) k/uL Monocytes # (Manual) 3.91 H (0-1.0) k/uL Eosinophils # (Manual) 31.26 H (0-0.7) k/uL Metamyelocytes # (Man) 35.17 H (0) k/uL Myelocytes # (Manual) 66.44 H (0) k/uL Promyelocytes # (Man) 27.36 H (0) k/uL Blast Cells # (Man) 7.82 H (0) k/uL Nucleated RBCs 1 H (0-0) /100 WBC Pathologist Review See comment A Creatinine (0.66-1.25) mg/dL Urine Protein Trace H (Negative) 11/04/17 Range/Units 06:41 WBC (3.8-10.6) k/uL RBC (4.30-5.90) m/uL Hgb (13.0-17.5) gm/dL Hct (39.0-53.0) % MCH (25.0-35.0) pg MCHC (31.0-37.0) g/dL RDW (11.5-15.5) % Plt Count (150-450) k/uL Neutrophils # (Manual) (1.3-7.7) k/uL Lymphocytes # (Manual) (1.0-4.8) k/uL Monocytes # (Manual) (0-1.0) k/uL Eosinophils # (Manual) (0-0.7) k/uL Metamyelocytes # (Man) (0) k/uL Myelocytes # (Manual) (0) k/uL Promyelocytes # (Man) (0) k/uL Blast Cells # (Man) (0) k/uL Nucleated RBCs (0-0) /100 WBC Pathologist Review Creatinine 1.66 H (0.66-1.25) mg/dL Urine Protein (Negative) Microbiology - Last 24 Hours (Table) 11/03/17 13:00 Urine Culture - Preliminary Urine,Voided Diabetes panel 11/04/17 Range/Units 06:41 Sodium 139 (137-145) mmol/L Potassium 4.2 (3.5-5.1) mmol/L Chloride 102 (98-107) mmol/L Carbon Dioxide 27 (22-30) mmol/L BUN 18 (9-20) mg/dL Creatinine 1.66 H (0.66-1.25) mg/dL Glucose 83 (74-99) mg/dL Calcium 8.5 (8.4-10.2) mg/dL Calcium panel 11/04/17 Range/Units 06:41 Calcium 8.5 (8.4-10.2) mg/dL Pituitary panel 11/04/17 Range/Units 06:41 Sodium 139 (137-145) mmol/L Potassium 4.2 (3.5-5.1) mmol/L Chloride 102 (98-107) mmol/L Carbon Dioxide 27 (22-30) mmol/L BUN 18 (9-20) mg/dL Creatinine 1.66 H (0.66-1.25) mg/dL Glucose 83 (74-99) mg/dL Calcium 8.5 (8.4-10.2) mg/dL Adrenal panel 11/04/17 Range/Units 06:41 Sodium 139 (137-145) mmol/L Potassium 4.2 (3.5-5.1) mmol/L Chloride 102 (98-107) mmol/L Carbon Dioxide 27 (22-30) mmol/L BUN 18 (9-20) mg/dL Creatinine 1.66 H (0.66-1.25) mg/dL Glucose 83 (74-99) mg/dL Calcium 8.5 (8.4-10.2) mg/dL Assessment and Plan (1) Abdominal pain Narrative/Plan: Await oncology evaluation. No surgical intervention planned at this time. CAT scan abdomen and pelvis to be considered once oncology has evaluated patient. Current Visit: Yes Status: Acute Code(s): R10.9 - UNSPECIFIED ABDOMINAL PAIN SNOMED Code(s): 57927479
--- NOTE | 2017-11-04 13:55 | P.PN ---
Subjective Progress Note Date: 11/04/17 Principal diagnosis: Acute abdominal pain nonspecific interstitial infiltrates on chest x-ray and CT of the chest. Bryant is a 52-year-old white male patient of Dr. Diego Mao, who presented to the emergency department on 11/03/2017 at 1018 with complaints of unintentional weight loss of over 50 pounds over the last few months, loss of appetite, increased abdominal distention, increasing difficulty with his vision, oral thrush, abdominal pain and overall generalized weakness. Patient has an underlying history of CML for which she used to see Dr. Walters from medical oncology, however he has not been receiving any treatment for it in the last few years. Currently patient just sees his family physician, he stop seeing Dr. Walters after a medication that was prescribed by Dr. Walters has reportedly caused him to have hypertension. Did complain of increasing swelling in his bilateral lower extremities, increasing abdominal girth, nausea, but no vomiting. Patient has had a Myke fundoplication by Dr. Martinez in the past , who has also advised him not to have a EGD because of the thinness of his esophagus. Reports some discomfort with swallowing. He denies any acute pulmonary complaints, denies any acute dyspnea, chest congestion, sputum production, or chest wall tenderness. Patient also reports a significantly enlarged painful spleen. Past medical problems include CML, untreated, GERD, hypertension, depression, chronic pain syndrome on OxyContin, GERD/reflux. Patient's surgical history is significant for appendectomy, bowel resection, hernia repair, incisional hernia repairs, fundoplication. Patient is a former smoker. Patient's chest x-ray was positive for diffuse interstitial pattern, which was a new finding compared to prior exam. Given the patient's history of CML, these are leukemic infiltrates. Patient is not having any pulmonary symptoms. He is afebrile, denies any chest congestion, sputum production, any dyspnea. Denies any chest wall tenderness. Abdominal x-ray suggested underlying ascites, but no bowel obstruction. Lab work showed WBC of 390.8, hemoglobin of 8.3, lately count of 147. The peripheral smear demonstrated marked leukocytosis with a severe left shift and numerous circulating immature myeloid cells, compatible with the patient's history of CML. Sodium was 137, potassium is 3.9, chloride is 95, carbon dioxide is 31, BUN is 17, creatinine is 1.60. Plasma lactic acid was 1.9, alk phos was 193, proBNP was within normal limits for his age, at 536. Amylase lipase were within normal limits, at 34 and 42 respectively. Urinalysis was negative, influenza screen was negative. We were asked to see the patient in consultation in regards to the interstitial pattern seen on the chest x-ray. Patient was reevaluated today on 11/04/2017, doing a bit better, continues to have abdominal pain, but no active pulmonary symptoms whatsoever. No cough no wheezing or shortness of breath no chest pain. CT of the abdomen and pelvis showed markedl hepatosplenomegaly. Patient is yet to be evaluated by oncology today for his worsening picture of CML, Objective - Vital Signs Vital signs: Vital Signs Temp 98.9 F 11/04/17 07:00 Pulse 95 11/04/17 07:00 Resp 16 11/04/17 07:00 BP 120/57 11/04/17 07:00 Pulse Ox 92 L 11/04/17 07:00 Intake & Output 11/03/17 11/04/17 11/04/17 18:59 06:59 18:59 Weight 91.6 kg 91.6 kg Other: # Voids 2 - Exam GENERAL EXAM: Alert, pleasant, 52-year-old white male, slightly pale, but in no acute distress. HEAD: Normocephalic/atraumatic. EYES: Normal reaction of pupils, equal size. Conjunctiva pink, sclera white. NOSE: Clear with pink turbinates. THROAT: No erythema or exudates. NECK: No masses, no JVD, no thyroid enlargement, no adenopathy. CHEST: No chest wall deformity. Symmetrical expansion. LUNGS: Equal air entry with no crackles, wheeze, rhonchi or dullness. CVS: Regular rate and rhythm, normal S1 and S2, no gallops, no murmurs, no rubs ABDOMEN: Abdomen is large and distended, there is obvious splenomegaly, tender to palpation. There are multiple healed abdominal scars EXTREMITIES: No clubbing,no cyanosis, 2+ pulses and upper and lower extremities. Patient has extensive bilateral lower extremity edema, 3+ pitting edema, extending into his lower abdominal area, anasarca MUSCULOSKELETAL: Muscle strength and tone normal. SPINE: No scoliosis or deformity SKIN: No rashes CENTRAL NERVOUS SYSTEM: Alert and oriented -3. No focal deficits, tone is normal in all 4 extremities. PSYCHIATRIC: Alert and oriented -3. Appropriate affect. Intact judgment and insight. - Labs CBC & Chem 7: 11/04/17 06:41 11/04/17 06:41 Labs: Abnormal Lab Results - Last 24 Hours (Table) 11/03/17 11/04/17 11/04/17 Range/Units 11:31 06:41 06:41 WBC 390.8 H* 365.9 H* (3.8-10.6) k/uL RBC 2.96 L 2.71 L (4.30-5.90) m/uL Hgb 8.3 L 9.9 L D (13.0-17.5) gm/dL Hct 26.1 L 24.4 L (39.0-53.0) % MCH 36.3 H (25.0-35.0) pg MCHC 40.3 H (31.0-37.0) g/dL RDW 21.1 H 20.7 H (11.5-15.5) % Plt Count 147 L 106 L (150-450) k/uL Neutrophils # (Manual) 222.70 H (1.3-7.7) k/uL Lymphocytes # (Manual) 7.82 H (1.0-4.8) k/uL Monocytes # (Manual) 3.91 H (0-1.0) k/uL Eosinophils # (Manual) 31.26 H (0-0.7) k/uL Metamyelocytes # (Man) 35.17 H (0) k/uL Myelocytes # (Manual) 66.44 H (0) k/uL Promyelocytes # (Man) 27.36 H (0) k/uL Blast Cells # (Man) 7.82 H (0) k/uL Nucleated RBCs 1 H (0-0) /100 WBC Pathologist Review See comment A Creatinine 1.66 H (0.66-1.25) mg/dL Microbiology - Last 24 Hours (Table) 11/03/17 13:00 Urine Culture - Preliminary Urine,Voided Assessment and Plan Assessment: #1. Unintentional weight loss of over 50 pounds in the course of a few months, loss of appetite, weakness, most likely related to untreated CML. #2. Marked leukocytosis with a severe left shift, patient presented with WBC of 390.8, related to untreated CML #3. Diffuse interstitial pattern seen on the chest x-ray, related to leukemic infiltrates in a patient with a history of chronic myelogenus leukemia #4. Anasarca, severe pitting peripheral edema, increased abdominal girth, possibly related to relative hypoalbuminemia #5. Acute kidney injury, of unclear etiology, possibly related to ATN or hypertension #6. Chronic myeloid leukemia, with history of noncompliance with chronic myeloid leukemia treatment #7. Hypertension #8. History of nicotine dependence #9. Depression #10. Gastroesophageal reflux disease #11. History of COPD, currently stable #12. History of multiple abdominal surgeries, including Myke fundoplication, bowel resection, incisional hernia repairs. Continue present treatment plan as per the different consultants on the case, not much for us to do at this point, we'll see on when necessary basis. Time with Patient: Less than 30
--- NOTE | 2017-11-04 19:36 | P.CONS ---
History of Present Illness - Reason for Consult Consult date: 11/04/17 CML with blasts on smear Requesting physician: Mauricio Worthy - Chief Complaint Vision changes, abdominal pain - History of Present Illness Mr. Lerner is a 52-year-old gentleman who was diagnosed with CML 8 years ago, but has not been on any active treatment for over 1-2 years, who presents with various complaints including visual changes, abdominal pain, ascites, and chest x-ray showing interstitial infiltrates. He was found to have a WBC of 300s, hemoglobin 9, platelets 100, with left shift including 2% blasts on differential. Hematology was called for concerns of blast crisis. Unfortunately I do not have any of his records regarding his CML. Patient states that he has been through several oncologist. He has been through several different treatments and has had lots of side effects to all of them. He mentions having a possible mutation. He was last seen in according to the patient by Dr. Walters although I do not have access to the office records at this time. He said he was only seen there briefly and he was not happy with how things were going. Since then he has not seen any oncologist or been on any treatment. He comes in with recurrent infectious and abdominal problems. He has severe hepatosplenomegaly. Has also been having weight loss. Recurrent infections, fevers. Lower extremity swelling. No night sweats. No nausea, vomiting, diarrhea, or constipation. Does have abdominal pain. Also has been having a lot of trouble with thrush and possible margarita esophagitis. Most of his weight loss is attributed to inability to eat due to this as this is not been adequately treated according to the patient. He is currently on Diflucan now. No other significant complaints at this time. 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 - "CHEMO WON'T WORK") 2 past iluesHIATAL HERNIA(had sx), chronic pain syndrome,ventral hernia, leg/feet edema,ascities thrush,at times diffiuclty swallowing(would like a stronger medication to take it away) History of Any Multi-Drug Resistant Organisms: None Reported Past Surgical History: Adenoidectomy, Appendectomy, Bowel Resection, Hernia Repair, Tonsillectomy Additional Past Surgical History / Comment(s): STATES MULTIPLE STOMACH SX, MULT ADHESIONS, HAS SURGICAL STEEL MESH IN INCISIONAL HERNIA, HIATAL HERNIA SX AND LYSIS OF ADHESIONS Additional Past Anesthesia/Blood Transfusion Reaction / Comm: STATES OCCASIONALLY WAKES UP VIOLENT, AND NEEDS TO HAVE "WRISTS CUFFED" Smoking Status: Current every day smoker - Past Family History Father Additional Family Medical History / Comment(s): HEART PROBLEMS Mother Family Medical History: No Reported History Additional Family Medical History / Comment(s): "HEALTHY". ' Medications and Allergies Home Medications Medication Instructions Recorded Confirmed Type Ondansetron [Zofran ODT] 8 mg PO Q12H PRN 12/16/14 11/03/17 History fentaNYL 25MCG/HR PATCH [Duragesic 1 applic TOPICAL Q72H 12/16/14 11/03/17 History 25MCG/HR] ALPRAZolam [Xanax] 2 mg PO Q6H PRN 11/03/17 11/03/17 History Ibuprofen [Motrin] 800 mg PO Q8H 11/03/17 11/03/17 History Nystatin 100,000 Unit/ml Susp 2.5 ml PO QID 11/03/17 11/03/17 History [Mycostatin Oral Susp] Zolpidem [Ambien] 10 mg PO HS PRN 11/03/17 11/03/17 History oxyCODONE HCL 15 mg PO Q2H PRN 11/03/17 11/03/17 History Allergies Allergy/AdvReac Type Severity Reaction Status Date / Time metoclopramide HCl Allergy Unknown Verified 11/03/17 10:57 [From Reglan] meperidine HCl [From Demerol] AdvReac Vein Verified 11/03/17 10:57 redness Physical Exam Vitals: Vital Signs Temp Pulse Resp BP Pulse Ox 11/04/17 15:00 98.2 F 92 16 108/65 91 L 11/04/17 07:00 98.9 F 95 16 120/57 92 L 11/04/17 00:00 16 11/03/17 21:18 98.9 F 100 16 128/78 94 L Intake and Output 11/04/17 11/04/17 11/04/17 06:59 14:59 22:59 Intake Total 210 Balance 210 Intake: Intake, IV Titration 210 Amount Fluconazole in NaCl,Iso- 50 Osm 100 mg In Saline 1 50ml.bag @ 50 mls/hr IVPB DAILY [facility] Rx#:[id number] Sodium Chloride 0.9% 1, 160 000 ml @ 70 mls/hr IV . [id number] [facility] Rx#:[id number] Other: # Voids 2 Weight 91.6 kg Patient Weight 11/05/17 06:59 Weight 91.6 kg General: In no acute distress. HEENT: EOMI. Mucosa moist. Neck: Neck supple. Lymph: No cervical/supraclavicular, axillary, or inguinal LAD. Lungs: CTA-B without wheezing or rhonchi. Heart: RRR. No LE edema. Abdomen: Soft, nontender, nondistended, with positive bowel sounds. Significant hepatosplenomegaly with spleen and liver palpable down to the umbilical line. No obvious other masses appreciated. MSK: 4/4 strength in all 4 extremities. Neuro: Alert and oriented 3. No obvious gross neurologic deficits. Skin: No jaundice or rash. Psych: Appropriate affect. Results CBC & Chem 7: 11/04/17 06:41 11/04/17 06:41 Labs: Abnormal Lab Results - Last 24 Hours (Table) 11/04/17 11/04/17 Range/Units 06:41 06:41 WBC 365.9 H* (3.8-10.6) k/uL RBC 2.71 L (4.30-5.90) m/uL Hgb 9.9 L D (13.0-17.5) gm/dL Hct 24.4 L (39.0-53.0) % MCH 36.3 H (25.0-35.0) pg MCHC 40.3 H (31.0-37.0) g/dL RDW 20.7 H (11.5-15.5) % Plt Count 106 L (150-450) k/uL Creatinine 1.66 H (0.66-1.25) mg/dL Microbiology - Last 24 Hours (Table) 11/03/17 13:00 Urine Culture - Preliminary Urine,Voided Chest x-ray: report reviewed CT scan - chest: report reviewed Assessment and Plan Assessment: CML Hepatosplenomegaly Fevers Margarita esophagitis on diflucan Weight loss Hernia Plan: Mr. Lerner is a 52-year-old gentleman with multiple comorbidities who is here for vision changes, abdominal pain, and thrush. Also with severe hepatosplenomegaly, and WBC of 360, hemoglobin 9, platelets 106 with 2% blasts seen on smear. It sounds like he's had a chronic history of his CML and has been through multiple lines of treatment through various oncologist. Does not seem that he sticks with any one particular oncologist for one reason or another. The last time he was seen by an oncologist and received any form of treatment for his CML was about 1-2 years ago. He states he's had thoughts of intolerances to the various TKI medications and has failed some of them. Questionable T315I mutation? His CBC is consistent with CML although the only way to differentiate between which phase of his CML he isn't asked to do a bone marrow biopsy. His organomegaly is due to his CML as well. At this time I would recommend obtaining his oncologic records. We'll also need to proceed with a bone marrow biopsy on Monday or Monday to further assess the status of his CML. We could start him on Hydrea in the meantime to help decrease his white count and prevent complications with possible hyperviscosity syndrome. I did discuss this with the patient and he is agreeable to proceeding with further workup. We'll start him on Hydrea 500 mg twice a day and monitor his CBC on a daily basis. Will monitor for TLS. Will continue to follow pt with you.
[2017-11-05] MEDS: HYDROmorphone 0.5 MG/0.5 ML SYRINGE IVP PRN (06:22)
[2017-11-05 07:07] LABS: Anisocytosis Moderate; HGB 9.1 gm/dL (13.0-17.5); Hypochromasia Marked; MCH 31.7 pg (25.0-35.0); MCV 90.7 fL (80.0-100.0); Macrocytosis Slight; Mean Platelet Volume 12.7; Platelet Count 133 k/uL (150-450); Poikilocytosis Slight; RBC 2.86 m/uL (4.30-5.90); RDW 21.9 % (11.5-15.5)
[2017-11-05 07:15] LABS: Albumin 3.4 g/dL (3.5-5.0); Calcium 8.6 mg/dL (8.4-10.2); Phosphorus 5.8 mg/dL (2.5-4.5); Potassium 4.3 mmol/L (3.5-5.1); Total Bilirubin 0.6 mg/dL (0.2-1.3); Total Protein 6.6 g/dL (6.3-8.2)
[2017-11-05 07:20] LABS: Uric Acid 12.9 mg/dL (3.5-8.5)
[2017-11-05] MEDS: FLUCONAZOLE IN NACL,ISO-OSM 100 MG in SALINE 1 50ML.BAG IVPB SCH (08:21)
[2017-11-05] MEDS: NYSTATIN 100,000 UNIT/ML SUSP 500,000 UNIT/5 ML CUP PO SCH ×4 (08:22→20:15)
[2017-11-05] MEDS: FUROSEMIDE 10 MG/ML 4 ML VIAL IV SCH ×2 (08:22→20:15)
[2017-11-05] MEDS: PANTOPRAZOLE 40 MG TABLET PO SCH (08:23)
--- NOTE | 2017-11-05 08:38 | P.PN ---
Subjective Progress Note Date: 11/05/17 Principal diagnosis: Abdominal pain Patient says his pain was unchanged overnight. His appetite is improved however. He is passing flatus but no bowel movement. He is requesting a stool softener. He was seen by oncology yesterday. Plans for bone marrow biopsy are being made. Objective - Vital Signs Vital signs: Vital Signs Temp 98.2 F 11/05/17 07:00 Pulse 95 11/05/17 07:00 Resp 16 11/05/17 07:00 BP 113/73 11/05/17 07:00 Pulse Ox 92 L 11/05/17 07:00 Intake & Output 11/04/17 11/05/17 11/05/17 18:59 06:59 18:59 Intake Total 210 Balance 210 Weight 91.6 kg 98 kg Intake: Intake, IV Titration 210 Amount Fluconazole in NaCl,Iso- 50 Osm 100 mg In Saline 1 50ml.bag @ 50 mls/hr IVPB DAILY [facility] Rx#:[id number] Sodium Chloride 0.9% 1, 160 000 ml @ 70 mls/hr IV . [id number] [facility] Rx#:[id number] Other: # Voids 2 - Exam Abdomen: Distended, hepatosplenomegaly, mild tenderness - Labs CBC & Chem 7: 11/05/17 06:41 11/05/17 06:41 Labs: Abnormal Lab Results - Last 24 Hours (Table) 11/05/17 11/05/17 Range/Units 06:41 06:41 WBC 335.9 H* (3.8-10.6) k/uL RBC 2.86 L (4.30-5.90) m/uL Hgb 9.1 L (13.0-17.5) gm/dL Hct 26.0 L (39.0-53.0) % RDW 21.9 H (11.5-15.5) % Plt Count 133 L (150-450) k/uL BUN 25 H (9-20) mg/dL Creatinine 1.80 H (0.66-1.25) mg/dL Uric Acid 12.9 H (3.5-8.5) mg/dL Phosphorus 5.8 H (2.5-4.5) mg/dL AST 66 H (17-59) U/L ALT 18 L (21-72) U/L Alkaline Phosphatase 165 H (38-126) U/L Lactate Dehydrogenase 3551 H (313-618) U/L Albumin 3.4 L (3.5-5.0) g/dL Microbiology - Last 24 Hours (Table) 11/03/17 13:00 Urine Culture - Final Urine,Voided Assessment and Plan (1) Abdominal pain Narrative/Plan: Will begin stool softeners. Continue oncologic workup. Current Visit: Yes Status: Acute Code(s): R10.9 - UNSPECIFIED ABDOMINAL PAIN SNOMED Code(s): 63505844
[2017-11-05] MEDS ORDERED: RASBURICASE 6 MG in SODIUM CHLORIDE 0.9% 50 ML IV ONE (10:00)
[2017-11-05 10:10] LABS: Band Neutrophils % 10 %; Metamyelocytes % 11 %; Myelocytes % 27 %; Neutrophils % (M) 21 %; Nucleated Red Blood Cells 2 /100 WBC (0-0); Promyelocytes % 17 %; Total Cells Counted 200
[2017-11-05 10:11] LABS: Basophils # (M) 6.59 k/uL (0-0.2); Blast Cells # (M) 16.47 k/uL (0); Eosinophils # (M) 19.76 k/uL (0-0.7); Lymphocytes # (M) 3.29 k/uL (1.0-4.8); Metamyelocytes # (M) 36.22 k/uL (0); Monocytes # (M) 9.88 k/uL (0-1.0); Myelocytes # (M) 88.91 k/uL (0); Promyelocytes # (M) 55.98 k/uL (0); WBC 329.3 k/uL (3.8-10.6)
[2017-11-05 10:14] LABS: Polychromasia Present; Target Cells Present
[2017-11-05] MEDS: ONDANSETRON 4 MG/2 ML VIAL IVP PRN ×2 (10:50→18:13)
[2017-11-05] MEDS: HYDROXYUREA 500 MG CAP PO SCH ×2 (10:50→20:16)
[2017-11-05] MEDS: LACTULOSE 20 GM/30 ML CUP PO SCH ×2 (10:52→20:16)
[2017-11-05] MEDS: ALLOPURINOL 100 MG TAB PO SCH (10:52)
[2017-11-05] MEDS: HYDROmorphone 2 MG TAB PO PRN ×3 (12:24→22:10)
[2017-11-05 13:07] LABS: T4, Free (Free Thyroxine) 0.98 ng/dL (0.78-2.19)
[2017-11-05] MEDS: NICOTINE 21MG/24HR PATCH TRANSDERM SCH (13:53)
--- NOTE | 2017-11-05 18:08 | PN ---
PROGRESS NOTE DATE OF SERVICE: 11/05/2017 This 52-year-old gentleman admitted with chronic myeloid leukemia, also had weight loss. Patient also complained of abdomen discomfort and distention also. The patient had massive splenomegaly. Multiple consultants including Dr. Jacobsen and Hematology/Oncology is following the patient closely. PAST MEDICAL HISTORY: Reviewed. REVIEW OF SYSTEMS: CARDIOVASCULAR: No angina. RESPIRATORY: As mentioned earlier. GI: No nausea. : No dysuria. NERVOUS SYSTEM: No numbness or weakness. MEDICATIONS: 1. Zyloprim 100 mg p.o. daily. 2. Xanax 2 mg daily p.r.n. 3. Duragesic patch. 4. Fluconazole. 5. Lasix 40 mg IV b.i.d. 6. Dilaudid 2 mg p.o. q.3 p.r.n. 7. Hydrea 500 mg p.o. b.i.d. 8. Cephulac. 9. Narcan. 10.Habitrol. 11.Zofran. 12.Oxy-IR 15 mg p.o. q.3h p.r.n. 13.Protonix. 14.MiraLAX. 15.Ambien. PHYSICAL EXAM: Patient is alert, oriented x3. Pulse is 95, blood pressure 130/70, respiration 16, temperature 98.2, pulse ox 98% room air. HEENT: Conjunctivae normal. NECK: No jugular venous distention. CARDIOVASCULAR: S1, S2 muffled. RESPIRATORY: Breath sounds diminished in the bases. A few scattered rhonchi and crackles. ABDOMEN: Soft, diffuse distention and hepatosplenomegaly. LEGS: No edema, no swelling. NERVOUS SYSTEM: Higher functions as mentioned earlier. Moves all four limbs. No focal deficits. LYMPHATICS: No lymphadenopathy in the neck, axillae, groin.. SKIN: No ulcer, rashes, bleeding. LABS: WBC 3.9, hemoglobin 9.1, creatinine 1.8. AST and ALT noted. TSH 16.7, free T4 is 0.998. ASSESSMENT: 1. Abdominal pain and distention with ventral hernia and possible hepatosplenomegaly. 2. Chronic myeloid leukemia with possible blast transformation, blast phase, rule out acute myeloid leukemia. 3. Leukocytosis. 4. Acute renal failure. 5. Fungal esophagitis. 6. Weight loss. 7. Bilateral lower extremity edema. 8. Gastroesophageal reflux disease. 9. Elevated LDH. 10.Elevated uric acid. 11.Increased creatinine with chronic kidney disease stage III. 12.Anemia. Anemia normocytic of chronic disease. 13.Thrombocytopenia. RECOMMENDATIONS AND DISCUSSION: In this 52-year-old gentleman with multiple complex medical issues, will monitor the patient. Continue the current management and symptomatic treatment. Otherwise at this time I recommended symptomatic treatment and Protonix, pain medications, DVT prophylaxis. Otherwise closely follow with Dr. Elder and Surgery and as well as Dr. Rod. Guarded prognosis because of multiple complex medical issues. Further recommendations to follow. MMODL / IJN: [id number] /
--- NOTE | 2017-11-05 18:15 | P.PN ---
Subjective Progress Note Date: 11/05/17 Principal diagnosis: CML Hepatosplenomegaly Pt continues to have abdominal pain. Objective - Vital Signs Vital signs: Vital Signs Temp 97.8 F 11/05/17 15:00 Pulse 97 11/05/17 15:00 Resp 16 11/05/17 15:00 BP 109/69 11/05/17 15:00 Pulse Ox 92 L 11/05/17 15:00 Intake & Output 11/04/17 11/05/17 11/05/17 18:59 06:59 18:59 Intake Total 210 100 Balance 210 100 Weight 91.6 kg 98 kg Intake: Intake, IV Titration 210 100 Amount Fluconazole in NaCl,Iso- 50 50 Osm 100 mg In Saline 1 50ml.bag @ 50 mls/hr IVPB DAILY [facility] Rx#:[id number] Rasburicase 6 mg In 50 Sodium Chloride 0.9% 50 ml @ 100 mls/hr IV ONCE ONE Rx#:[id number] Sodium Chloride 0.9% 1, 160 000 ml @ 70 mls/hr IV . [id number] [facility] Rx#:[id number] Other: # Voids 2 - Exam Gen.: No acute distress HEENT: Mucosa moist. No conjunctival pallor. Neck: Supple. Lungs: CTA-B. Respiratory effort normal. Heart: Regular rate rhythm. Abdomen: Severe hepato-splenomegaly down to the umbilicus. Otherwise soft. Extremities: No edema. Skin: No jaundice. Neuro: Alert and oriented 3. Psych: Appropriate affect. - Labs CBC & Chem 7: 11/05/17 06:41 11/05/17 06:41 Labs: Abnormal Lab Results - Last 24 Hours (Table) 11/05/17 11/05/17 11/05/17 Range/Units 06:41 06:41 06:41 WBC 329.3 H* (3.8-10.6) k/uL RBC 2.86 L (4.30-5.90) m/uL Hgb 9.1 L (13.0-17.5) gm/dL Hct 26.0 L (39.0-53.0) % RDW 21.9 H (11.5-15.5) % Plt Count 133 L (150-450) k/uL Neutrophils # (Manual) 102.00 H (1.3-7.7) k/uL Monocytes # (Manual) 9.88 H (0-1.0) k/uL Eosinophils # (Manual) 19.76 H (0-0.7) k/uL Basophils # (Manual) 6.59 H (0-0.2) k/uL Metamyelocytes # (Man) 36.22 H (0) k/uL Myelocytes # (Manual) 88.91 H (0) k/uL Promyelocytes # (Man) 55.98 H (0) k/uL Blast Cells # (Man) 16.47 H (0) k/uL Nucleated RBCs 2 H (0-0) /100 WBC BUN 25 H (9-20) mg/dL Creatinine 1.80 H (0.66-1.25) mg/dL Uric Acid 12.9 H (3.5-8.5) mg/dL Phosphorus 5.8 H (2.5-4.5) mg/dL AST 66 H (17-59) U/L ALT 18 L (21-72) U/L Alkaline Phosphatase 165 H (38-126) U/L Lactate Dehydrogenase 3551 H (313-618) U/L Albumin 3.4 L (3.5-5.0) g/dL TSH 16.700 H (0.465-4.680) mIU/L Microbiology - Last 24 Hours (Table) 11/03/17 13:00 Urine Culture - Final Urine,Voided Assessment and Plan Assessment: CML Hepatosplenomegaly Fevers Margarita esophagitis on diflucan Weight loss Hernia Hyperuricemia Plan: Mr. Lerner is a 52-year-old gentleman with multiple comorbidities who is here for vision changes, abdominal pain, and thrush. Also with severe hepatosplenomegaly, and WBC of 360, hemoglobin 9, platelets 106 with 2% blasts seen on smear. It sounds like he's had a chronic history of his CML and has been through multiple lines of treatment through various oncologist. Does not seem that he sticks with any one particular oncologist for one reason or another. The last time he was seen by an oncologist and received any form of treatment for his CML was about 1-2 years ago. He states he's had thoughts of intolerances to the various TKI medications and has failed some of them. Questionable T315I mutation? His CBC is consistent with CML although the only way to differentiate between which phase of his CML he isn't asked to do a bone marrow biopsy. His organomegaly is due to his CML as well. Blood work including LDH, uric acid, and TLS labs checked. LDH severaly elevated at 3000, with uric acid elevated at 12. He was started on hydrea 500mg PO bid on 11/05/17 with hydration. Due to severely elevated uric acid in the setting of concerns for possible accellerated or blast phase of CML (unable to determine this unless BMB obtained), will give a dose of rasburicase and start on allopurinol 100mg PO daily due to underlying CKD. Will plan on a BMB during the early part of the week to better assess his CML status. Discussed with pt and he's agreeable. Continue to monitor TLS labs and CBCD, CMP, and LDH daily. Will continue to follow pt with you.
[2017-11-05] MEDS: SODIUM CHLORIDE 0.9% 1,000 ML IV SCH (20:19)
[2017-11-05] MEDS: ALPRAZolam 0.5 MG TAB PO PRN (22:09)
[2017-11-06] MEDS: SODIUM CHLORIDE 0.9% 1,000 ML IV SCH ×3 (05:38→20:17)
[2017-11-06] MEDS: NICOTINE 21MG/24HR PATCH TRANSDERM SCH (07:48)
[2017-11-06] MEDS: HYDROmorphone 2 MG TAB PO PRN ×3 (07:48→20:18)
[2017-11-06] MEDS: ALPRAZolam 0.5 MG TAB PO PRN (07:49)
[2017-11-06] MEDS: NYSTATIN 100,000 UNIT/ML SUSP 500,000 UNIT/5 ML CUP PO SCH ×4 (07:49→20:19)
[2017-11-06] MEDS: LACTULOSE 20 GM/30 ML CUP PO SCH ×2 (07:50→20:19)
[2017-11-06] MEDS: HYDROXYUREA 500 MG CAP PO SCH ×2 (07:50→20:19)
[2017-11-06] MEDS: PANTOPRAZOLE 40 MG TABLET PO SCH (07:51)
[2017-11-06] MEDS: ALLOPURINOL 100 MG TAB PO SCH (07:51)
[2017-11-06] MEDS: FUROSEMIDE 10 MG/ML 4 ML VIAL IV SCH ×2 (07:51→20:19)
[2017-11-06] MEDS: FLUCONAZOLE IN NACL,ISO-OSM 100 MG in SALINE 1 50ML.BAG IVPB SCH (08:05)
--- NOTE | 2017-11-06 12:50 | P.PN ---
<Nataly Gongora M - Last Filed: 11/06/17 12:39> Subjective Progress Note Date: 11/06/17 52-year-old male seen and examined at bedside at bedside. Patient continues to report having abdominal pain states has not had a bowel movement poor appetite Patient recalls that he has seen Dr. Martinez in the past cannot recall exactly what surgical procedure was done. Reviewing computerized record shows that the patient was seen by Dr. Martinez December 2016 at that time patient did undergo laparoscopic lysis of adhesions partial fundoplasty via jose martin procedure, laparoscopic periesophageal hiatal hernia repair without mesh interoperative EGD patient has a history of CML with hepatosplenomegaly Objective - Vital Signs Vital signs: Vital Signs Temp 98.6 F 11/06/17 07:00 Pulse 99 11/06/17 07:00 Resp 20 11/06/17 07:00 BP 124/59 11/06/17 07:00 Pulse Ox 100 11/06/17 07:00 Intake & Output 11/05/17 11/06/17 11/06/17 18:59 06:59 18:59 Intake Total 100 2740 Balance 100 2740 Weight 98.1 kg Intake: Intake, IV Titration 100 1200 Amount Fluconazole in NaCl,Iso- 50 Osm 100 mg In Saline 1 50ml.bag @ 50 mls/hr IVPB DAILY [facility] Rx#:[id number] Rasburicase 6 mg In 50 Sodium Chloride 0.9% 50 ml @ 100 mls/hr IV ONCE ONE Rx#:[id number] Sodium Chloride 0.9% 1, 1200 000 ml @ 100 mls/hr IV . Q10H [facility] Rx#:[id number] Oral 1540 Other: # Voids 3 - Exam Exam Abdomen firm distended mild tenderness across the abdominal wall with hepatosplenomegaly - Labs CBC & Chem 7: 11/05/17 06:41 11/05/17 06:41 Assessment and Plan Assessment: Impression Present on admission abdominal pain CML Hepatosplenomegaly Margarita esophagitis History of December 2014 laparoscopic lysis of adhesions and repair of paraesophageal hiatal hernia without mesh Plan No surgical intervention at this time Defer to the attending for medical management DVT GI prophylaxis pain control Pain control The above impression and plan of care have been discussed and directed by signing physician. Nataly Gongora nurse practitioner acting as scribe for signing physician. <Munira Martinez - Last Filed: 11/06/17 22:50> Subjective Patient has history of Jose Martin fundoplication December 2014. Objective - Vital Signs Vital signs: Vital Signs Temp 98.3 F 11/06/17 22:21 Pulse 92 11/06/17 22:21 Resp 18 11/06/17 22:21 BP 119/63 11/06/17 22:21 Pulse Ox 91 L 11/06/17 22:21 Intake & Output 11/06/17 11/06/17 11/07/17 06:59 18:59 06:59 Intake Total 2740 Balance 2740 Weight 98.1 kg Intake: Intake, IV Titration 1200 Amount Sodium Chloride 0.9% 1, 1200 000 ml @ 100 mls/hr IV . Q10H [facility] Rx#:[id number] Oral 1540 Other: # Voids 3 2 - Labs CBC & Chem 7: 11/05/17 06:41 11/05/17 06:41
--- NOTE | 2017-11-06 18:22 | PN ---
PROGRESS NOTE DATE OF SERVICE: 11/06/2017 This 52-year-old gentleman who was admitted with CML also had significant weight loss. The patient also had abdominal distention and possible splenomegaly and hepatomegaly. The patient was started on Hydrea. White count is elevated. Patient possibly has also. Hematology/Oncology is following the patient closely. No chest pain. No palpitations. Past medical history reviewed. REVIEW OF SYSTEMS: CARDIOVASCULAR SYSTEM: No angina, palpitations. RESPIRATORY SYSTEM: No cough. GI: As mentioned earlier. : No dysuria or retention. NERVOUS SYSTEM: No numbness, weakness. Current medications are reviewed and include: 1. Zyloprim 100 mg p.o. daily. 2. Xanax 2 mg daily p.r.n. 3. Duragesic patch 25 mcg q.72 hours. 4. Diflucan 100 mg p.o. daily. 5. Lasix 40 mg p.o. b.i.d. 6. Dilaudid 2 mg p.o. q.3 p.r.n. 7. Hydrea 500 mg p.o. b.i.d. 8. Cephulac 20 grams p.o. b.i.d. 9. Narcan. 10.Habitrol 21 daily. 11.Mycostatin. 12.Zofran. 13.Oxyir 15 mg q.3. 14.Protonix 40 mg daily. 15.MiraLAX. 16.Ambien 10 mg at bedtime p.r.n. PHYSICAL EXAMINATION: Patient is alert, oriented x3. Pulse 98, blood pressure 118/60, respiration 18, temperature 98 degrees, pulse ox 97% on room air. HEENT: Conjunctivae normal. Oral mucosa moist. NECK: No jugular venous distention. No carotid bruit. No lymph node enlargement. CARDIOVASCULAR SYSTEM: S1, S2 muffled. RESPIRATORY SYSTEM: Breath sounds diminished at the bases. No rhonchi. No crackles. ABDOMEN: Soft, tense. Diffuse distention, possible hepatosplenomegaly. LEGS: No edema. No swelling. NERVOUS SYSTEM: No focal deficit. LABS: Labs at this time show WBC 329.3, hemoglobin 9.1. Otherwise, neutrophils are 102 , basophils 6.59. Creatinine is 1.80. LFTs are noted. LDH is 3351, THC 16.700 and free T4 is 0.98. ASSESSMENT: 1. Abdominal pain, distention with a ventral hernia and possible hepatosplenomegaly secondary to chronic myeloid leukemia. 2. 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 3. Leukocytosis. 4. History of noncompliance. 5. Acute renal failure. 6. Possible fungal esophagitis. 7. Weight loss. 8. Bilateral lower extremity edema. 9. Gastroesophageal reflux disease. 10.Increased LDH. 11.Elevated uric acid. 12.Increased creatinine with chronic kidney disease, stage III. 13.Anemia, normocytic; anemia of chronic disease. 14.Thrombocytopenia. RECOMMENDATIONS AND DISCUSSION: I recommend to continue current medication, continue symptomatic treatment. Otherwise at this time I recommend following the patient closely along with Hematology/ Oncology. Symptomatic treatment will be provided. Prognosis overall is extremely guarded because of the multiple complex medical issues, extremely high white count. The patient will eventually need a bone marrow exam as well. Further recommendations to follow. MMODL / IJN: [id number] / MTDD
--- NOTE | 2017-11-06 23:26 | P.PN ---
Progress Note - Text Progress Note Date: 11/06/17 Patient seen and evaluated. He is resting comfortably. An abdominal binder is in place. Patient has recalcitrant leukemia. Agree with evaluation with surgical oncologist Also agree with no surgical intervention.
[2017-11-07] MEDS: SODIUM CHLORIDE 0.9% 1,000 ML IV SCH (05:16)
[2017-11-07] MEDS: HYDROmorphone 2 MG TAB PO PRN ×3 (05:16→21:01)
[2017-11-07] MEDS: FUROSEMIDE 10 MG/ML 4 ML VIAL IV SCH ×2 (07:34→21:14)
[2017-11-07] MEDS: ALPRAZolam 0.5 MG TAB PO PRN (07:43)
[2017-11-07 09:03] LABS: Albumin 3.6 g/dL (3.5-5.0); Phosphorus 5.6 mg/dL (2.5-4.5); Potassium 4.3 mmol/L (3.5-5.1); Total Bilirubin 0.5 mg/dL (0.2-1.3); Total Protein 6.8 g/dL (6.3-8.2); Uric Acid 7.5 mg/dL (3.5-8.5)
[2017-11-07 09:04] LABS: Anisocytosis Moderate; HCT 26.8 % (39.0-53.0); HGB 9.6 gm/dL (13.0-17.5); Hypochromasia Marked; MCH 31.7 pg (25.0-35.0); MCV 88.2 fL (80.0-100.0); Mean Platelet Volume 12.7; Platelet Count 150 k/uL (150-450); RBC 3.04 m/uL (4.30-5.90); RDW 20.6 % (11.5-15.5)
[2017-11-07] MEDS: FLUCONAZOLE 100 MG TAB PO SCH (09:40)
[2017-11-07] MEDS: LACTULOSE 20 GM/30 ML CUP PO SCH ×2 (09:41→21:12)
[2017-11-07] MEDS: ALLOPURINOL 100 MG TAB PO SCH (09:42)
[2017-11-07] MEDS: HYDROXYUREA 500 MG CAP PO SCH ×2 (09:42→21:02)
[2017-11-07] MEDS: PANTOPRAZOLE 40 MG TABLET PO SCH (09:42)
[2017-11-07] MEDS: NYSTATIN 100,000 UNIT/ML SUSP 500,000 UNIT/5 ML CUP PO SCH ×4 (09:44→21:12)
[2017-11-07] MEDS: NICOTINE 21MG/24HR PATCH TRANSDERM SCH (09:48)
[2017-11-07 11:35] LABS: Band Neutrophils % 11 %; Blast Cells # (M) 3.08 k/uL (0); Eosinophils # (M) 33.86 k/uL (0-0.7); Lymphocytes # (M) 12.31 k/uL (1.0-4.8); Metamyelocytes % 10 %; Myelocytes % 18 %; Neutrophils % (M) 41 %; Nucleated Red Blood Cells 1 /100 WBC (0-0); Promyelocytes % 6 %; Total Cells Counted 200; WBC 307.8 k/uL (3.8-10.6)
[2017-11-07 11:36] LABS: Metamyelocytes # (M) 30.78 k/uL (0); Monocytes # (M) 3.08 k/uL (0-1.0); Poikilocytosis (M) Present; Polychromasia Present; Promyelocytes # (M) 18.47 k/uL (0); Target Cells Present
[2017-11-07 13:03] VITALS: BMI 29.2
[2017-11-07] MEDS: ONDANSETRON 4 MG/2 ML VIAL IVP PRN (16:34)
--- NOTE | 2017-11-07 20:28 | P.PN ---
Subjective Progress Note Date: 11/07/17 Patient is a 52 year old gentleman with recalcitrant and untreatable leukemia. He reports abdominal pain secondary to asciteds. Has been wearing his abdominal binder. He reports potential transfer to hospice. He reports initially improved appetite which is now decreasing. Objective - Vital Signs Vital signs: Vital Signs Temp 99.2 F 11/07/17 07:00 Pulse 95 11/07/17 07:00 Resp 20 11/07/17 07:00 BP 110/72 11/07/17 07:00 Pulse Ox 90 L 11/07/17 07:00 Intake & Output 11/07/17 11/07/17 11/08/17 06:59 18:59 06:59 Intake Total 1290 Balance 1290 Weight 100.5 kg 100.5 kg Intake: Intake, IV Titration 600 Amount Sodium Chloride 0.9% 1, 600 000 ml @ 100 mls/hr IV . Q10H [facility] Rx#:[id number] Oral 690 Other: # Voids 1 2 - Exam GENERAL: Well developed and in no acute distress. Pleasant. HEENT: No sclera icterus. Extraocular movements grossly intact. Moist buccal mucosa. Head is atraumatic, normocephalic. Hears conversational speech. No nasal drainage. NECK: Supple without lymphadenopathy. CHEST: Non-labored respirations and equal bilateral excursions. CARDIOVASCULAR: Regular rate and rhythm. Palpable 2+ radial pulses. ABDOMEN: Distended and tender with tense ascites MUSCULOSKELETAL: No clubbing, cyanosis. Moderate edema 4+. NEUROLOGIC: No focal or lateralizing signs. PSYCH: Appropriate affect. Alert and oriented to person, place and time. SKIN: Good skin turgor. Well perfused. - Labs CBC & Chem 7: 11/07/17 08:33 11/07/17 08:33 Labs: Abnormal Lab Results - Last 24 Hours (Table) 11/07/17 11/07/17 Range/Units 08:33 08:33 WBC 307.8 H* (3.8-10.6) k/uL RBC 3.04 L (4.30-5.90) m/uL Hgb 9.6 L (13.0-17.5) gm/dL Hct 26.8 L (39.0-53.0) % RDW 20.6 H (11.5-15.5) % Neutrophils # (Manual) 160.00 H (1.3-7.7) k/uL Lymphocytes # (Manual) 12.31 H (1.0-4.8) k/uL Monocytes # (Manual) 3.08 H (0-1.0) k/uL Eosinophils # (Manual) 33.86 H (0-0.7) k/uL Metamyelocytes # (Man) 30.78 H (0) k/uL Myelocytes # (Manual) 55.40 H (0) k/uL Promyelocytes # (Man) 18.47 H (0) k/uL Blast Cells # (Man) 3.08 H (0) k/uL Nucleated RBCs 1 H (0-0) /100 WBC BUN 36 H (9-20) mg/dL Creatinine 1.80 H (0.66-1.25) mg/dL Glucose 107 H (74-99) mg/dL Phosphorus 5.6 H (2.5-4.5) mg/dL ALT 20 L (21-72) U/L Alkaline Phosphatase 182 H (38-126) U/L Assessment and Plan (1) Abdominal pain Current Visit: Yes Status: Acute Code(s): R10.9 - UNSPECIFIED ABDOMINAL PAIN SNOMED Code(s): 07698727 (2) Ascites Current Visit: Yes Status: Acute Code(s): R18.8 - OTHER ASCITES SNOMED Code(s): 213568443 (3) CML (chronic myelocytic leukemia) Current Visit: Yes Status: Acute Code(s): C92.10 - CHRONIC MYELOID LEUK, BCR /ABL-POSITIVE, NOT ACHIEVE REMIS SNOMED Code(s): 97702952 Plan: 1. I had a long discussion with the patient where alternatives of transfer to a higher level of care for radiological services were reviewed. 2. At this time, no additional surgical intervention per general surgery. 3. Patient reports potential transfer to hospice as an alternative.
--- NOTE | 2017-11-07 22:20 | PN ---
PROGRESS NOTE DATE OF SERVICE: 11/07/2017. HISTORY: This 52-year-old gentleman admitted with CML, also possibly had a blast crisis and leukemic transformation. Apparently the patient has been fired by the local oncology practice and today the patient apparently fired the oncologist on the case as well. The patient at this time would like to to attend the oncologist either in [place] or [place] and later on the patient also expressed wishes to be in to be considered for hospice as well. The patient is closely monitored. Abdomen distention appears to be slightly less. White count is stable. EXAM: Alert, oriented x3. Pulse 95, blood pressure 120/72, respiration 20, temperature 99.2, pulse ox 98% room air. HEENT: Conjunctivae normal. NECK: Supple. No JVD. CARDIOVASCULAR: S1 and S2 muffled. LUNGS: Breath sounds diminished at the bases. No rhonchi, no crackles. ABDOMEN: Soft, distended. LEGS: No edema. NERVOUS SYSTEM: No focal deficits. LABS: WBC 307.8, hemoglobin 9.6, creatinine is 1.8, phosphorus is 5.6. The pathology report is noted. ASSESSMENT: 1. Abdominal pain and distention with ventral hernia and hepatosplenomegaly secondary to chronic myeloid leukemia. 2. Chronic myeloid leukemia with progression with possible blastic transmission with blast phase, rule out acute myeloid leukemia. 3. Leukocytosis. 4. History of noncompliance. 5. Acute renal failure. 6. Possible fungal esophagitis. 7. Weight loss. 8. Right lower extremity edema. 9. Gastroesophageal reflux disease. 10.Elevated uric acid. 11.Increased LDH. 12.Increased creatinine with chronic kidney disease stage 3. 13.Anemia, normocytic anemia of chronic disease. 14.Thrombocytopenia. RECOMMENDATIONS: Recommend to continue current management, monitoring and symptomatic treatment. Otherwise at this time, I recommend monitoring the patient closely. As mentioned earlier, we will provide hospice information to the patient and if the patient is stable, I would give the option for the patient to go to either [place] or [place]. We will try to expedite the appointments. Once again, the prognosis is guarded. Further recommendations to follow. MMODL / IJN: [id number] /
[2017-11-07] MEDS ORDERED: IOHEXOL 350 MG/ML 25 ML BOTTLE (ORAL USE) PO PRN (23:04)
[2017-11-07] MEDS ORDERED: RX INFO: IV CONTRAST WAS GIVEN 1 EACH MISC MISCELLANE PRN (23:04)
[2017-11-07] MEDS ORDERED: MAG HYDROX/AL HYDROX/SIMETH 30 ML, HYOSCYAMINE ELIXIR 10 ML, CIMETIDINE HCL 300 MG, LID... PO ONE ×4 (23:05)
[2017-11-08] MEDS: SODIUM CHLORIDE 0.9% 1,000 ML IV SCH (00:09)
[2017-11-08 02:02] VITALS: RESP 18
[2017-11-08] MEDS: HYDROmorphone 2 MG TAB PO PRN ×2 (03:09→09:03)
[2017-11-08] MEDS: ONDANSETRON 4 MG/2 ML VIAL IVP PRN (05:44)
[2017-11-08 08:13] LABS: Anisocytosis Moderate; HCT 27.9 % (39.0-53.0); HGB 10.5 gm/dL (13.0-17.5); Hypochromasia Marked; MCH 33.6 pg (25.0-35.0); MCHC 37.6 g/dL (31.0-37.0); MCV 89.5 fL (80.0-100.0); Mean Platelet Volume 13.2; Platelet Count 160 k/uL (150-450); RBC 3.12 m/uL (4.30-5.90); RDW 20.7 % (11.5-15.5)
[2017-11-08 08:14] LABS: Albumin 3.6 g/dL (3.5-5.0); Potassium 3.8 mmol/L (3.5-5.1); Total Bilirubin 0.5 mg/dL (0.2-1.3); Total Protein 6.8 g/dL (6.3-8.2); Uric Acid 7.8 mg/dL (3.5-8.5)
[2017-11-08 08:39] VITALS: BP 135/85; PULSE 105; TEMP 99.7
[2017-11-08] MEDS: ALPRAZolam 0.5 MG TAB PO PRN (09:03)
[2017-11-08] MEDS: FUROSEMIDE 10 MG/ML 4 ML VIAL IV SCH (09:04)
[2017-11-08] MEDS: ALLOPURINOL 100 MG TAB PO SCH (09:11)
[2017-11-08] MEDS: FLUCONAZOLE 100 MG TAB PO SCH (09:12)
[2017-11-08] MEDS: PANTOPRAZOLE 40 MG TABLET PO SCH (09:12)
[2017-11-08] MEDS: NYSTATIN 100,000 UNIT/ML SUSP 500,000 UNIT/5 ML CUP PO SCH (09:13)
[2017-11-08] MEDS: NICOTINE 21MG/24HR PATCH TRANSDERM SCH (09:13)
[2017-11-08] MEDS: LACTULOSE 20 GM/30 ML CUP PO SCH (09:16)
[2017-11-08] MEDS: HYDROXYUREA 500 MG CAP PO SCH (09:20)
[2017-11-08 10:22] LABS: Band Neutrophils % 13 %; Eosinophils # (M) 27.01 k/uL (0-0.7); Metamyelocytes % 5 %; Myelocytes % 28 %; Neutrophils % (M) 40 %; Nucleated Red Blood Cells 1 /100 WBC (0-0); Promyelocytes % 2 %; Total Cells Counted 200; WBC 300.1 k/uL (3.8-10.6)
[2017-11-08 10:23] LABS: Metamyelocytes # (M) 15.01 k/uL (0); Myelocytes # (M) 84.03 k/uL (0); Poikilocytosis (M) Present; Polychromasia Present
--- NOTE | 2017-11-08 22:33 | DS ---
DISCHARGE SUMMARY DATE OF SERVICE: 11/08/2017 FINDINGS: 1. Abdominal distention with ventral hernia hepatosplenomegaly secondary to chronic myeloid leukemia. 2. Chronic myeloid leukemia with progression with possible blast transformation with rule out acute myeloid leukemia. 3. Leukocytosis. 4. History of noncompliance. 5. History of acute renal failure. 6. Possible fungal esophagitis. 7. History of weight loss. 8. History of lower extremity edema. 9. Gastroesophageal reflux disease. 10.Increased creatinine. 11.Chronic kidney stage 3. 12.Anemia, normocytic anemia of chronic disease. 13.Thrombocytopenia. 14.Hospice measures. DISCHARGE DISPOSITION: The patient being discharged with hospice. HISTORY OF PRESENT ILLNESS: This 52-year-old gentleman with a past medical history being followed by Dr. 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 Patient is rather noncompliant previously. Case was discussed with Hematology/Oncology. Please refer to hematology/oncology report for further information. The patient opted to go with hospice currently and the patient hospice will be arranged. PHYSICAL EXAMINATION: On exam, vitals are stable. Cardiovascular: S1. S2. Abdomen soft. Central nervous system: No focal deficits. DISCHARGE MEDICATIONS: 1. Zyloprim 100 mg p.o. daily. 2. Xanax 2 mg p.o. every 6 hours p.r.n. 3.20 mcg q.72h. 4. Diflucan 100 mg p.o. daily. 5. Cephulac 20 g p.o. b.i.d. 6. Habitrol 21 daily. 7. Nystatin 2000 q.i.d. 8. Zofran 8 mg p.o. b.i.d. 9. Oxycodone 15 mg p.o. b.i.d. 10.Protonix 40 mg daily. 11.MiraLAX 17 g p.o. daily. 12.Ambien 10 mg p.o. q.h.s.. The patient being discharged in stable condition with guarded prognosis for hospice as an outpatient. MMODL / IJN: [id number] / MTDD
--- NOTE | 2017-11-15 23:57 | P.PN ---
Progress Note - Text Progress Note Date: 11/07/17 the patient was seen in follow-up today. the patient was not willing to provide a review of systems or let us examined him (as noted below) and therefore review of systems is obtained from nursing and the patient's chart. No unusual bleeding has been noted. There has been no fever, chills, nausea or vomiting. The patient still remains weak but is doing somewhat better. He has persistent bilateral lower extremity and lower abdominal wall swelling. He is able to ambulate. Appetite has improved somewhat. Review of systems otherwise negative. Review of vital signs reveals them to be within normal limits Patient refused physical exam Labs were reviewed, showing improvement in white blood count, stability of hemoglobin and creatinine. Uric acid is improved. Calcium and phosphorous are stable A/p: #1 Leucocytosis- the patient has a known history of chronic myeloid leukemia. He was previously seen by Dr. Walters in our practice. He was discharged from the practice in 2014, due to chronic noncompliance with medications and follow- up. According to standard practice, he was sent certified letter informing him of the discharge and the reasons for the same. He was also given information about other hospitals and physicians where he could establish follow-up. However the patient did not choose to follow-up with anyone now for more than 2 years and has not been on any treatment. Therefore the leukocytosis, hepatosplenomegaly and other symptoms are due to progression of his CML. The patient was seen during this admission, by the on-call physician of our practice. Of note she is new to the practice, and did not have access to the patient's office EMR over the weekend, and was therefore not aware that he had been discharged from the practice. In any case, as the patient was inpatient, he was seen and a specific request of the admitting service, and appropriate care was provided for stabilization in the acute setting. These include initiation of Hydrea, allopurinol, as well as rasburicase and hydration. With the above, the patient is clinically stable with improvement/stabilization of her lab parameters as noted above. Based on his WBC and differential, CML progression with accelerated phase is most likely. The patient will need a bone marrow down the line, to rule out transformation to AML. He will also need to resume treatment and regular follow -up. The above was discussed with the patient. He was again informed him that he has been discharged from the practice, and he is being seen while inpatient, at the specific request to the admitting service, her to provide appropriate appropriate care for stabilization in the acute setting. He was informed that with the above measures, he does appear to have improved /stabilized. However as he has been discharged from the practice, he will need to establish with another hematology/oncology service to provide ongoing care. He was again clearly informed that his presentation was due to progression of his CML. The patient did not provide any specific reason as to why he had not sought any follow-up or treatment for his CML over the last 2 years plus. on being informed that outpatient office follow-up and treatment could not be provided locally by our group (due to his discharge) the patient became verbally quite abusive and aggressive. He used abusive racial epithets against Dr. Walters. He himself refused further care from us at this time (including answering further questions about review of systems, or allowing a physical exam ), stating, in a very threatening manner, accompanied with the use of expletives, that we had "3 seconds to get out of the ( expletive) room". The above was witnessed by the patient's RN. The above was also discussed in detail with the patient's admitting service. obviously, we cannot continue to provide care in these circumstances. However, as noted, with the care provided so far, the patient is stable to improved. Further oncology care can continue with the outpatient setting. He was provided contact information for, and an appointment in the near future with, another oncology practice. his records can be forwarded by the office, to any new physician caregiver, upon request
== END 2017-11-08 14:15 | disposition home or self-care (01) | DRG 841 ==
LOC: EC 10:18 → 5ONC 13:54
PROVIDERS: ADMIT Internal Medicine; ATTEND Internal Medicine
DX: C92.10 Chronic myeloid leukemia, BCR/ABL-positive, not having achieved remission (principal); N17.9 Acute kidney failure, unspecified; B37.81 Candidal esophagitis; D69.6 Thrombocytopenia, unspecified; B37.0 Candidal stomatitis; R64 Cachexia; E44.0 Moderate protein-calorie malnutrition; R18.8 Other ascites; N18.3 Chronic kidney disease, stage 3 (moderate); R16.2 Hepatomegaly with splenomegaly, not elsewhere classified; K43.9 Ventral hernia without obstruction or gangrene; K21.0 Gastro-esophageal reflux disease with esophagitis; D63.8 Anemia in other chronic diseases classified elsewhere; I12.9 Hypertensive chronic kidney disease with stage 1 through stage 4 chronic kidney disease, or unspecified chronic kidney disease; H54.7 Unspecified visual loss; Z51.5 Encounter for palliative care; G89.4 Chronic pain syndrome; T39.395A Adverse effect of other nonsteroidal anti-inflammatory drugs [NSAID], initial encounter; F17.200 Nicotine dependence, unspecified, uncomplicated; E88.09 Other disorders of plasma-protein metabolism, not elsewhere classified; F32.9 Major depressive disorder, single episode, unspecified; J44.9 Chronic obstructive pulmonary disease, unspecified; K59.00 Constipation, unspecified; E86.9 Volume depletion, unspecified; E79.0 Hyperuricemia without signs of inflammatory arthritis and tophaceous disease; Z88.8 Allergy status to other drugs, medicaments and biological substances; Z79.899 Other long term (current) drug therapy; Z79.891 Long term (current) use of opiate analgesic; Z91.19 Patient's noncompliance with other medical treatment and regimen; Z79.1 Long term (current) use of non-steroidal anti-inflammatories (NSAID); Z90.89 Acquired absence of other organs; Z90.49 Acquired absence of other specified parts of digestive tract; Z87.19 Personal history of other diseases of the digestive system
CPT/HCPCS: 36415; 71046; 71250; 74019; 80048; 80053; 81003; 82150; 83605; 83615; 83690; 83880; 84100; 84439; 84443; 84550; 85025; 85027; 85610; 85730; 87086; 87502; 96361; 96374; 96375; 99285

== ENCOUNTER 2017-12-29 18:00 | Inpatient (IN) | payer MEDICAID ==
[2017-12-29] MEDS ORDERED: MORPHINE SULFATE 4 MG/0.8 ML SYRINGE (INJ) IV PRN ×2 (20:52→21:38)
[2017-12-29] MEDS ORDERED: ATROPINE OPHTH SOLN 1% 5ML BTL SUBLINGUAL PRN (20:52)
[2017-12-29] MEDS: SCOPOLAMINE 1.5MG/72HR PATCH TRANSDERM PRN (21:13)
[2017-12-29] MEDS: LORazepam 2 MG/ML INJ IV PRN (21:13)
[2017-12-29] MEDS ORDERED: ACETAMINOPHEN IV (For NPO) 1,000 MG in EMPTY BAG 1 BAG IVPB ONE (21:45)
[2017-12-29] MEDS: MORPHINE SULFATE 4 MG/0.8 ML SYRINGE (INJ) IVP PRN (22:24)
[2017-12-29 23:34] VITALS: TEMP 98.5
[2017-12-30] MEDS: MORPHINE SULFATE 4 MG/0.8 ML SYRINGE (INJ) IVP PRN ×10 (00:19→10:51)
[2017-12-30] MEDS: ONDANSETRON 4 MG/2 ML VIAL IVP PRN ×3 (02:04→14:35)
[2017-12-30] MEDS: LORazepam 2 MG/ML INJ IV PRN ×6 (03:54→23:57)
--- NOTE | 2017-12-30 08:12 | HP ---
HISTORY AND PHYSICAL DATE OF SERVICE: 12/30/2017. CHIEF COMPLAINTS: Abdominal pain and nausea and comfort measures. HISTORY OF PRESENT ILLNESS: This 52-year-old gentleman with past medical history of multiple medical problems including chronic myeloid leukemia, history of blastic transformation, history of hiatal hernia, appendectomy, bowel resection, depression being for Dr. Mao in the outpatient setting recently admitted with abdominal distention with inguinal hernia and the CML with progression with possible blastic transfusion with myeloid leukemia is considered. The patient and hematology/oncology opted for hospice care and the patient was treated under hospice, but currently the patient had some severe abdominal pain and with failure of outpatient treatment, the patient was readmitted for symptom management at this time. There is no history of fever, rigors. No history of headache, loss of consciousness or seizures. PAST MEDICAL HISTORY: History of recent CML with acute transformation, adenoidectomy, appendectomy, history of depression. MEDICATIONS: The list is currently unavailable and the medication in the computer: Oxycodone, fentanyl, Ambien, MiraLAX, Protonix, Zofran, nystatin Habitrol 21, Cephulac, Diflucan, Zyloprim, Xanax. Doses confirmed. ALLERGIES: REGLAN AND DEMEROL. FAMILY HISTORY: History of heart problems in the family. SOCIAL HISTORY: Previous history of smoking. No history of alcohol intake. REVIEW OF SYSTEMS: ENT: No diminished hearing or vision. CARDIOVASCULAR: No angina. RESPIRATORY: No cough. GI: As mentioned earlier. : No dysuria. NERVOUS SYSTEM: No numbness, weakness. ALLERGY/IMMUNOLOGY: No history of asthma. MUSCULOSKELETAL: As mentioned earlier. HEMATOLOGY/ONCOLOGY As mentioned earlier. ENDOCRINE: No history of diabetes or hypothyroidism. CONSTITUTIONAL: As mentioned earlier. DERMATOLOGY: Negative. RHEUMATOLOGY: Negative. PSYCHIATRY: As mentioned earlier. PHYSICAL EXAMINATION: Alert and oriented x3. Pulse is 80, blood pressure noted, respiration 24, temperature 98.5. HEENT: Conjunctivae normal. Oral mucosa moist. NECK: No jugular venous distention. No carotid bruit. No lymph node enlargement. CARDIOVASCULAR: S1, S2. No S3, no S4. RESPIRATORY: Breath sounds diminished in the bases. A few scattered rhonchi and crackles. ABDOMEN: Soft. Mild diffuse distention. Diffuse tenderness also present. No guarding. No rigidity. LEGS: No edema, no swelling. NERVOUS SYSTEM: Higher function as mentioned earlier, moves all 4 limbs, no focal deficits. LYMPHATICS: No lymphadenopathy in the neck, axillae, groin. SKIN: No ulcer, rash or bleeding. LABS: Not available. ASSESSMENT: 1. Abdominal distention and pain for evaluation. 2. History of recent hepatosplenomegaly with acute myeloid leukemia transformation of chronic myeloid leukemia. 3. History of fungal esophagitis. 4. History of gastroesophageal reflux disease. 5. History of chronic kidney disease stage III. 6. NO CODE, NO CPR, NO VENT. 7. Hospice measures. RECOMMENDATIONS AND DISCUSSION: This 52-year-old gentleman who presented with multiple complex medical issues, will monitor the patient closely. Continue the current management and symptomatic treatment. Treat the patient symptomatically with Protonix and also morphine. Ativan for anxiety. Resume the home medications, scopolamine. Otherwise we will follow the patient closely. Prognosis guarded because of multiple complex medical issues. MMODL / IJN: [id number] /
[2017-12-30] MEDS: PANTOPRAZOLE 40 MG/10 ML VIAL IVP SCH ×2 (08:23→20:57)
[2017-12-30] MEDS ORDERED: ACETAMINOPHEN SUPPOSITORY 650 MG SUPP RECTAL PRN (11:37)
[2017-12-30] MEDS: MORPHINE SULFATE (100 MG/2 ML) 100 MG in SODIUM CHLORIDE 0.9% 100 ML IV SCH (12:15)
--- NOTE | 2017-12-30 15:27 | PN ---
PROGRESS NOTE DATE OF SERVICE: 12/30/2017. INTERVAL HISTORY: This 52-year-old gentleman who was admitted for abdominal distention and pain and is on hospice at this time. Patient is complaining of severe pain. Patient needed morphine every hour. Morphine drip was initiated 4 mg/hour. EXAM: The patient is sedated. Respirations 20. HEENT: Conjunctivae normal. Oral mucosa moist. NECK: No jugular venous distention. NO carotid bruit. No lymph node enlargement. CARDIOVASCULAR: S1, S2 RESPIRATORY: Breath sounds diminished in the bases. A few scattered rhonchi. ABDOMEN: Soft, distention. LEGS: Bilateral leg edema. LABS: Not available. ASSESSMENT: 1. Abdominal distention and intractable pain on morphine drip. 2. History of chronic myeloid leukemia with acute myeloid transformation recently. 3. History of fungal esophagitis. 4. Gastroesophageal reflux disease. 5. Chronic kidney disease, stage III. 6. NO CODE, NO CPR, NO VENT. 7. Hospice measures. RECOMMENDATIONS AND DISCUSSION I recommend to continue current management and symptomatic treatment. Otherwise at this time I recommend continue the morphine drip. Closely follow. Guarded prognosis. Further recommendations to follow. MMODL / IJN: [id number] /
[2017-12-31] MEDS: LORazepam 2 MG/ML INJ IV PRN ×7 (01:43→22:34)
[2017-12-31] MEDS: MORPHINE SULFATE (100 MG/2 ML) 100 MG in SODIUM CHLORIDE 0.9% 100 ML IV SCH ×3 (04:21→22:44)
[2017-12-31] MEDS: PANTOPRAZOLE 40 MG/10 ML VIAL IVP SCH ×2 (08:19→21:38)
[2017-12-31] MEDS: PROMETHAZINE INJ 12.5 MG in SODIUM CHLORIDE 0.9% 50 ML IVPB PRN ×2 (10:13→18:59)
--- NOTE | 2017-12-31 13:58 | PN ---
PROGRESS NOTE DATE OF SERVICE: 12/31/2017 This 52-year-old gentleman who was admitted with leukemia and hospice care was complaining of abdominal distention, also had abdominal distention. The patient i on hospice care. Patient on morphine 8 mg/hour. EXAM: Vitals are noted. Cardiovascular System: S1, S2. Respirations: A few scattered rhonchi. ABDOMEN: Soft, distended. Legs no edema. No swelling. Nervous system: Sedated. ASSESSMENT: 1. Abdominal distention with intact pain on morphine drip. 2. History of chronic myeloid leukemia with acute myeloid leukemia, transfusion recently. 3. History of fungal esophagitis. 4. Gastroesophageal reflux disease. 5. Chronic kidney disease stage 3. 6. NO CODE, NO CPR, NO VENT. 7. Hospice measures and comfort measures. RECOMMENDATIONS AND DISCUSSION: Recommend to continue current medications, management and symptomatic treatment, continue to optimize morphine drip. Symptomatic treatment. Prognosis guarded. Discussed with the family and we will closely follow with hospice. Further recommendations to follow. MMOZZYL / IJN: [id number] / ANAIS
[2018-01-01] MEDS: PROMETHAZINE INJ 12.5 MG in SODIUM CHLORIDE 0.9% 50 ML IVPB PRN (02:13)
[2018-01-01] MEDS: LORazepam 2 MG/ML INJ IV PRN ×5 (04:04→21:40)
[2018-01-01] MEDS: MORPHINE SULFATE (100 MG/2 ML) 100 MG in SODIUM CHLORIDE 0.9% 100 ML IV SCH ×4 (04:54→22:30)
[2018-01-01] MEDS: PANTOPRAZOLE 40 MG/10 ML VIAL IVP SCH ×2 (08:08→21:55)
[2018-01-01 09:53] VITALS: BMI 59.8
[2018-01-01] MEDS: ONDANSETRON 4 MG/2 ML VIAL IVP PRN (13:29)
--- NOTE | 2018-01-01 20:13 | P.PN ---
Subjective Progress Note Date: 01/01/18 Progress note being dictated for Dr. Lucas. Interval history: This is a 52-year-old gentleman admitted with uncontrollable pain, abdominal distention in a patient with leukemia on hospice. Continues on hospice/comfort care. Maintained on morphine drip. Appears comfortable. Objective - Vital Signs Vital signs: Vital Signs Temp 98.5 F 12/29/17 23:34 Pulse Resp 17 12/31/17 01:40 BP Pulse Ox Intake & Output 01/01/18 01/01/18 01/02/18 06:59 18:59 06:59 Intake Total 170.150 203.306 Balance 170.150 203.306 Weight 200 kg Intake: Intake, IV Titration 170.150 203.306 Amount Morphine Sulfate (100 mg/ 170.150 203.306 2 ml) 100 mg In Sodium Chloride 0.9% 100 ml @ 1 MG/HR 1.02 mls/hr IV . Q24H JESSICA Rx#:[id number] Other: # Voids 1 0 - Exam Vitals noted. CV: regular S1,S2.RESP: Scattered rhonchi. ABD: soft, distended. Neuro: Sedated. Assessment and Plan Assessment: 1. Abdominal distention with intact pain on morphine drip 2. 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 History of fungal esophagitis 4. Chronic kidney disease, stage III 5. No Code, No CPR, No Vent 6. Hospice measures, comfort measures Plan: Continue on current medication regime, comfort care/hospice care. Titrate morphine drip to comfort. Prognosis poor. Family at bedside, updated. Questions, concerns addressed. Further recommendations to follow. The impression and plan of care has been dictated as directed. : I performed a history and examination of this patient, discussed the same with the dictator. I agree with the dictator's note ,documented as a scribe. Any additional findings or plans will be noted.
[2018-01-02] MEDS: LORazepam 2 MG/ML INJ IV PRN ×3 (02:06→09:22)
[2018-01-02] MEDS: MORPHINE SULFATE (100 MG/2 ML) 100 MG in SODIUM CHLORIDE 0.9% 100 ML IV SCH ×6 (02:22→22:27)
[2018-01-02] MEDS: PANTOPRAZOLE 40 MG/10 ML VIAL IVP SCH ×2 (08:22→21:41)
[2018-01-02] MEDS: ONDANSETRON 4 MG/2 ML VIAL IVP PRN ×2 (08:29→14:00)
[2018-01-02] MEDS: SCOPOLAMINE 1.5MG/72HR PATCH TRANSDERM PRN (09:22)
[2018-01-02] MEDS: LORazepam 2 MG/ML INJ IV SCH ×6 (11:58→22:16)
--- NOTE | 2018-01-02 18:11 | P.PN ---
Subjective Progress Note Date: 01/02/18 Progress note being dictated for Dr. Lucas. Interval history: This is a 52-year-old gentleman admitted with uncontrollable pain, abdominal distention in a patient with leukemia on hospice. Continues on hospice/comfort care. Maintained on morphine drip. Nauseated earllier. Occasional periods of apnea. Objective - Vital Signs Vital signs: Vital Signs Temp 98.5 F 12/29/17 23:34 Pulse Resp 17 01/02/18 15:26 BP Pulse Ox Intake & Output 01/01/18 01/02/18 01/02/18 18:59 06:59 18:59 Intake Total 203.306 267.717 192.884 Output Total 500 540 Balance 203.306 -232.283 -347.116 Weight 200 kg Intake: Intake, IV Titration 203.306 267.717 192.884 Amount Morphine Sulfate (100 mg/ 203.306 267.717 192.884 2 ml) 100 mg In Sodium Chloride 0.9% 100 ml @ 1 MG/HR 1.02 mls/hr IV . Q24H JESSICA Rx#:[id number] Output: Urine 500 540 Other: Voiding Method Urinal Urinal # Voids 0 2 - Exam Vitals noted. CV: regular S1,S2.RESP: Scattered rhonchi,. ABD: soft, distended. Neuro: Sedated. Assessment and Plan Assessment: 1. Abdominal distention with intact pain on morphine drip 2. 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 History of fungal esophagitis 4. Chronic kidney disease, stage III 5. No Code, No CPR, No Vent 6. Hospice measures, comfort measures Plan: Continue on current medication regime, comfort care/hospice care. Titrate morphine drip to comfort. Family at bedside- Questions, concerns addressed. Prognosis poor. The impression and plan of care has been dictated as directed. DrAyesha: I performed a history and examination of this patient, discussed the same with the dictator. I agree with the dictator's note ,documented as a scribe. Any additional findings or plans will be noted.
[2018-01-03 00:12] VITALS: BP 124/82; PULSE 150; RESP 14
[2018-01-03] MEDS: LORazepam 2 MG/ML INJ IV SCH ×8 (00:43→13:21)
[2018-01-03] MEDS: MORPHINE SULFATE (100 MG/2 ML) 100 MG in SODIUM CHLORIDE 0.9% 100 ML IV SCH ×2 (03:14→06:38)
[2018-01-03] MEDS: PANTOPRAZOLE 40 MG/10 ML VIAL IVP SCH (08:47)
--- NOTE | 2018-01-03 20:05 | DS ---
DISCHARGE SUMMARY PRIMARY CAUSE OF : Acute myeloid leukemia. OTHER DIAGNOSES: 1. Abdominal distention with intractable pain on morphine drip. 2. Chronic myeloid leukemia with acute myeloid transformation. 3. History of fungal esophagitis. 4. Chronic kidney disease stage 3. 5. NO CODE, NO CPR, NO VENT. 6. Hospice measures. HISTORY OF PRESENT ILLNESS: This 52-year-old gentleman with a past history of multiple medical problems, as mentioned earlier, was admitted for respite care and hospice because of the symptomatology of abdominal pain with abdominal distention. Patient treated symptomatically. Morphine drip was used and the patient succumbed to his above multiple mentioned complex medical issues. The prognosis remained extremely guarded throughout the hospital stay. Discussed with family on multiple occasions. Please refer to the multiple history and physical and other notes for further details. MMODL / IJN: [id number] /
== END 2018-01-03 14:43 | disposition expired | DRG 951 ==
LOC: UNDOADMIN 18:00 → 4MS4W 18:00
PROVIDERS: ADMIT Hospitalist; ATTEND Hospitalist
DX: Z51.5 Encounter for palliative care (principal); C92.00 Acute myeloblastic leukemia, not having achieved remission; Z66 Do not resuscitate; F32.9 Major depressive disorder, single episode, unspecified; R14.0 Abdominal distension (gaseous); K21.9 Gastro-esophageal reflux disease without esophagitis; R10.9 Unspecified abdominal pain; R11.0 Nausea; K44.9 Diaphragmatic hernia without obstruction or gangrene; I12.9 Hypertensive chronic kidney disease with stage 1 through stage 4 chronic kidney disease, or unspecified chronic kidney disease; N18.3 Chronic kidney disease, stage 3 (moderate); Z90.49 Acquired absence of other specified parts of digestive tract; Z87.891 Personal history of nicotine dependence; Z88.5 Allergy status to narcotic agent; Z88.8 Allergy status to other drugs, medicaments and biological substances; Z79.899 Other long term (current) drug therapy